=== PATIENT | male | born 1945 | race Caucasian/White ===

== ENCOUNTER 2017-01-14 11:05 | Inpatient (IN) | payer MEDICARE, OTHER ==
[~2017-01-14] VITALS: Ht 182.9 cm; Wt 99.1 kg
[~2017-01-14 11:05] MED LIST: ACET325T9 PO; ASPI81TA50 PO; ATOR40TA59 PO; ATORVASTATIN CA80 MG PO; BUSP10TA PO; BUSP5TAB PO; CHOL10003 PO; CLOP75TA PO; ESCI10TA PO; IPRA3AMP NEB; LEVO50TA5 PO; LEVO88TA4 PO; LISI40TA PO; LORA0.5T96 PO; LORA1TAB PO; LORA2VIA4 IM; MAG30ORA2 PO; MAGN2400 PO; MAGN400T3 PO; METH29OI TP; OLAN5TAB5 PO; QUET25TA5 PO; QUET50TA PO; QUET50TA5 PO; RIVA1PAT TD; RIVA1PAT3 TP; VALP250C PO
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
[2017-01-14 11:46] LABS: BASO % 1 % (0-3); EOS # 0.1 x10^3/uL (0.0-0.7); EOS % 1 % (0-3); HEMATOCRIT 41.2 % (39.0-53.0); HEMOGLOBIN 13.9 g/dL (13.0-17.5); LYMPH # 1.1 x10^3/uL (1.0-4.8); LYMPH % 23 % (24-48); MEAN CORPUSCULAR HEMOGLOBIN 35 pg (25-35); MEAN CORPUSCULAR HGB CONC 34 g/dL (31-37); MEAN CORPUSCULAR VOLUME 102 fL (79-100); MONO # 0.6 x10^3/uL (0.0-1.1); MONO % 13 % (0-9); NEUT # 2.8 x10^3uL (1.8-7.7); NEUT % 61 % (31-73); PLATELET COUNT 156 x10^3/uL (140-400); RED BLOOD COUNT 4.04 x10^6/uL (4.30-5.70); RED CELL DISTRIBUTION WIDTH 13.3 % (11.5-14.5); WHITE BLOOD COUNT 4.6 x10^3/uL (4.0-11.0)
--- NOTE | 2017-01-14 11:51 | EKG ---
[address] [address] Test Date: 2017-01-14 Test Time: 11:50:18 Pat Name: KOSTA LOUIS Department: Room: Gender: M Web [employer] Operator: ASHLEIGH : 1945 Requested By: JEREMIAS CIFUENTES Order Number: [id number] Reading MD: Cristo Kemp Measurements Intervals [place] Rate: 53 P: 49 NC: 166 QRS: 42 QRSD: 90 T: 82 QT: 416 QTc: 392 Interpretive Statements SINUS RHYTHM Electronically Signed On 01-29-2017 14:30:48 CDT by Cristo Kemp
[2017-01-14 11:57] LABS: HEMOGLOBIN ISTAT 13.3 gm/dL; POTASSIUM ISTAT 4.7 mmol/L (3.5-5.0)
[2017-01-14] MEDS ORDERED: LORAZEPAM 1 MG TABLET. PO ONE (12:00)
--- NOTE | 2017-01-14 13:31 | ACF ---
Admission Criteria Forms [facility] Clinical Indications for Admission to Inpatient Care (Place 'X' for any and all applicable criteria): Hospital admission is needed for appropriate care of the patient because of ANY ONE of the following[A] (3)(4)(5): [ ]I. Inpatient behavioral care is needed as indicated by ALL of the following: [ ]a) Treatment is needed because of patient risk due to ANY ONE of the following: [ ]i) Imminent danger to self due to ANY ONE of the following ( 7)(8): [ ]1) Imminent risk for recurrence of a suicide attempt or act of serious self-harm as indicated by ALL of the following: [ ]A. Very recent suicide attempt or deliberate act of serious self-harm [ ]B. Absence of sufficient relief of the action' s precipitants [ ]2) Current plan for suicide or serious self-harm [ ]3) Persistent thoughts of suicide or serious self- harm that cannot be adequately monitored at a lower level of care because of ANY ONE of the following: [ ]A. Insufficient behavioral care provider availability [ ]B. Inadequate patient support system [ ]C. Patient characteristics such as high impulsivity or unreliability [ ]D. Ruminative flooding; uncontrollable and overwhelming profusion of negative thoughts [ ]E. Frantic hopelessness; fatalistic conviction that life will not improve along with oppressive sense of entrapment and doom [ ]F. Active substance use disorder is present [ ]G. Ready access to lethal means is present [ ]ii) Imminent danger to others due to ANY ONE of the following( 10)(11): [ ]1) Imminent risk for recurrence of an attempt to seriously harm another as indicated by ALL of the following: [ ]A. Very recent attempt to seriously harm another [ ]B. Absence of sufficient relief of the action' s precipitants [ ]2) Current plan for homicide or seriously harming another [ ]3) Command auditory hallucination for serious self harm to self or others [ ]4) Persistent thoughts of homicide or seriously harming another that cannot be adequately monitored at a lower level of care because of ANY ONE of the following: [ ]A. Insufficient behavioral care provider availability [ ]B. Inadequate patient support system [ ]C. Patient characteristics such as high impulsivity or unreliability [ ]D. Active substance use disorder is present [ ]E. Ready access to lethal means is present [ ]iii) Behavioral health disorder is present with ALL of the following: (12)(16)(17)(18): [ ]1) Severe psychiatric or behavioral symptoms are present , including ANY ONE of the following: [ ]A. Hallucinations that are very bothersome to patient or are associated with severe pressure to respond to voices(17)(18) [ ]B. Delusions that are very bothersome to patient or are associated with severe pressure to act on beliefs(17)(18) [ ]C. Disorganized speech that is almost impossible to follow(17)(18) [ ]D. Motor behavior that is almost constantly abnormal or bizarre or catatonic(17)(18) [ ]E. Severe negative symptoms (eg, severe decrease in facial expression or self-initiated behavior)(17)(18) [ ]F. Severe shoaib (eg, daily periods of extensive mood elevation or irritability)(19)(20)(21)(22) [ ]G. Severe depression (eg, daily symptoms of deep hopelessness)[C] [ ]H. Severe anxiety[D] [ ]I. Severe comorbid substance use disorder with inability to control use, intense withdrawal symptoms, or extreme negative impact on primary psychiatric disorder(2)(7)(25) [ ]J. Severe impairment in cognition, memory, judgment, or impulse control(26)(27) [ ]K. Severe impairment in behavior, including physical or verbal aggression, disruptive behaviors, or internal or external anger manifestations (eg, rumination or outbursts)(28) [ ]L. Other psychiatric symptoms which are acute or represent worsening over baseline (eg, hyperactivity, agitation, obsessions, or compulsions)(29)(30)(31) [ ]2) Severe dysfunction in daily living is present as indicated by ANY ONE of the following: [ ]A. Extreme deterioration in social interactions ( eg, threatening behaviors with little or no provocation) [ ]B. Complete withdrawal from all social interactions [ ]C. Complete neglect of self-care with associated impairment in physical status [ ]D. Extreme disruption in vegetative function (eg , life-sustaining functions such as eating) [ ]E. Complete inability to maintain any appropriate aspect of personal responsibility in any adult roles (eg, occupational, parental) [ ]b) Treatment situation and needs are appropriate for level as indicated by ANY ONE of the following(13)(16): [ ]i) Patient unwilling to participate voluntarily and requires treatment (eg, legal commitment) in an involuntary unit [ ]ii) Voluntary treatment at lower level not feasible (e.g., very short-term crisis intervention or residential care unavailable or unacceptable for patient condition) [ ]iii) Need for physical restraint, seclusion, or other involuntary control (e.g., actively violent patient and adequate clinical rapport cannot be established to control violence) (25) [ ]iv) Jvvbnj-chi-xizfr medical or nursing care to address symptoms and initiate intervention is required; specific need has been identified [ ]II. Delirium as described by ANY ONE of the following (26)(27)(28): [ ]a) Delirium due to alcohol or sedative [B] withdrawal (16)(29)(30)( 31) [ ]b) Delirium of uncertain etiology that has not responded to appropriate treatment in emergency department or urgent care setting (32)(33) [ ]c) Delirium that prevents performance of a life-sustaining function (eg, feeding or hydrating oneself) (9) [ ]III. Administration of a somatic treatment that requires aqqmdw-bcb-jzvxr medical or nursing care because of a potential adverse physical effect or medical comorbidity(7) [X]IV. Behavioral Health condition, symptom, or finding for which emergency and observation care have failed or are not considered appropriate The original [facility] [employer] content created by [facility] has been revised. The portions of the content which have been revised are identified through the use of italic text or in bold, and [facility] has neither reviewed nor approved the modified material. All other unmodified content is copyright [facility]. Please see references footnoted in the original [facility] edition 2016 Admission Criteria Met?: Yes PROMISE SAMAYOA Jan 14, 2017 13:31
[2017-01-14 13:38] VITALS: BP 116/69
[2017-01-14] MEDS ORDERED: ACETAMINOPHEN 325 MG TABLET PO PRN (14:45)
[2017-01-14] MEDS ORDERED: LORAZEPAM 0.5 MG TABLET PO PRN (14:45)
[2017-01-14] MEDS ORDERED: IPRATRPIUM/ALBUTEROL 0.5/2.5MG 3 ML NEBU. NEB PRN (14:45)
[2017-01-14] MEDS ORDERED: METHYL SALICYLATE/MENTHOL TOPICAL OINTMENT 29GM TUBE. TP PRN (14:45)
[2017-01-14] MEDS ORDERED: DIVA125C PO (14:47)
[2017-01-14] MEDS ORDERED: MAGNESIUM HYDROXIDE 2,400 MG/30 ML ORAL.SUSP. PO PRN (15:00)
[2017-01-14 16:16] VITALS: BP 112/62
[2017-01-14] MEDS: CHOLECALCIFEROL (VITAMIN D3) 1,000 UNIT TABLET PO SCH (17:00)
[2017-01-14] MEDS: busPIRone 10 MG TABLET. PO SCH (17:00)
[2017-01-14 19:15] VITALS: BP 90/60
[2017-01-14] MEDS: DIVALPROEX 125 MG CAP.SPRINK PO SCH (20:18)
[2017-01-14] MEDS: MAGNESIUM OXIDE 400 MG TABLET PO SCH (20:18)
[2017-01-14] MEDS: LORAZEPAM 0.5 MG TABLET PO SCH (20:18)
[2017-01-14] MEDS: ATORVASTATIN CALCIUM 20 MG TABLET PO SCH (20:18)
--- NOTE | 2017-01-14 20:52 | PDOC ---
Exam [place] Demential Exam: [place] Note: Please also refer to the separate dictated note~for this date of service dictated separately.~Patient seen individually. Discussed the patient with Nursing staff reviewed the chart.~Reviewed interim history and current functioning. Reviewed vital signs,~Labs/ Radiology~and current medications noted below. Continue current treatment with the changes noted in the dictated addendum note Assessment: Vital Signs: Vital Signs Date Time Temp Pulse Resp B/P Pulse Ox O2 Delivery O2 Flow Rate FiO2 01/14/17 19:15 57 18 90/60 Room Air 01/14/17 16:16 97.9 92 Labs: Laboratory Tests Test 01/14/17 11:33 01/14/17 11:39 01/14/17 11:40 White Blood Count 4.6x10^3/uL (4.0-11.0) Red Blood Count 4.04x10^6/uL (4.30-5.70) L Hemoglobin 13.9g/dL (13.0-17.5) Hematocrit 41.2% (39.0-53.0) Mean Corpuscular Volume 102fL (79-100) H Mean Corpuscular Hemoglobin 35pg (25-35) Mean Corpuscular Hemoglobin Concent 34g/dL (31-37) Red Cell Distribution Width 13.3% (11.5-14.5) Platelet Count 156x10^3/uL (140-400) Neutrophils (%) (Auto) 61% (31-73) Lymphocytes (%) (Auto) 23% (24-48) L Monocytes (%) (Auto) 13% (0-9) H Eosinophils (%) (Auto) 1% (0-3) Basophils (%) (Auto) 1% (0-3) Neutrophils # (Auto) 2.8x10^3uL (1.8-7.7) Lymphocytes # (Auto) 1.1x10^3/uL (1.0-4.8) Monocytes # (Auto) 0.6x10^3/uL (0.0-1.1) Eosinophils # (Auto) 0.1x10^3/uL (0.0-0.7) Basophils # (Auto) 0.0x10^3/uL (0.0-0.2) Magnesium Level 2.0mg/dL (1.8-2.4) Aspartate Amino Transferase (AST) 22U/L (15-37) Alanine Aminotransferase (ALT) 34U/L (16-63) Alkaline Phosphatase 63U/L (46-116) POC Hemoglobin 13.3gm/dL POC Hematocrit 39% POC Sodium 140mmol/L (135-145) POC Potassium 4.7mmol/L (3.5-5.0) POC Chloride 103mmol/L (98-110) POC Total CO2 24mmol/L (23-32) Anion Gap 19mmol/L (6-14) H POC Blood Urea Nitrogen 18mg/dL (8-26) POC Creatinine 0.9mg/dL (0.5-1.4) Glucose Level 112mg/dL (60-99) H POC Ionized Calcium (Laura) 1.10mmol/L (1.13-1.32) L POC Troponin I 0.00ng/ml (<0.08) Current Medications: Meds: Current Medications Lorazepam (Ativan) 1 mg 1X ONCE PO Last administered on 01/14/17 12:00; Start 01/14/17 at 12:00; Stop 01/14/17 at 12:01; Status DC Acetaminophen (Tylenol) 650 mg PRN Q6HRS PRN PO PAIN / TEMP; Start 01/14/17 at 14:45 Aspirin (Aspirin Enteric Coated) 81 mg DAILYWBKFT PO ; Start 01/15/17 at 08:00 Buspirone HCl (Buspar) 10 mg BID94 PO Last administered on 01/14/17 17:00; Start 01/14/17 at 16:00 Clopidogrel Bisulfate (Plavix) 75 mg DAILY PO ; Start 01/15/17 at 09:00 Escitalopram Oxalate (Lexapro) 10 mg DAILY PO ; Start 01/15/17 at 09:00 Albuterol/ Ipratropium (Duoneb) 3 ml PRN QID PRN NEB SHORTNESS OF AIR; Start at 14:45 Levothyroxine Sodium (Synthroid) 88 mcg DAILY06 PO ; Start 01/15/17 at 06:00 Lorazepam (Ativan) 0.5 mg HS PO ; Start 01/14/17 at 21:00 Magnesium Oxide (Magnesium Oxide) 400 mg BID PO Last administered on 01/14/17 20:18; Start 01/14/17 at 21:00 Multi-Ingredient Ointment (Analgesic Johnson) 1 moraima PRN BID PRN TP MUSCLE PAIN; Start 01/14/17 at 14:45 Quetiapine Fumarate (SEROquel) 50 mg QHS PO ; Start 01/14/17 at 21:00 Rivastigmine (Exelon) 1 patch DAILY TD ; Start 01/15/17 at 09:00 Atorvastatin Calcium (Lipitor) 40 mg QHS PO Last administered on 01/14/17 20:18 ; Start 01/14/17 at 21:00 Magnesium Hydroxide (Milk Of Magnesia) 2,400 mg PRN QHS PRN PO CONSTIPATION; Start 01/14/17 at 15:00 Vitamin D (Vitamin D3) 1,000 unit BIDPCLD PO Last administered on 01/14/17 17: 00; Start 01/14/17 at 17:30 Lorazepam (Ativan) 0.5 mg PRN Q8HRS PRN PO ANXIETY / AGITATION; Start 01/14/17 at 14:45 Divalproex Sodium (Depakote Sprinkles) 500 mg BID PO Last administered on 20:18; Start 01/14/17 at 21:00 Olanzapine (Zyprexa Zydis) 5 mg PRN Q2HR PRN PO ANXIETY / AGITATION; Start 01/14 at 15:00 Active Scripts Active Reported Depakote Sprinkle (Divalproex Sodium) 125 Mg Cap.sprink 500 Mg PO BID EXELON 9.5mg/24hr (Rivastigmine) 1 Each Patch.td24 1 Patch TP DAILY Magnesium Oxide 400 Mg Tablet 400 Mg PO BID Ativan (Lorazepam) 0.5 Mg Tablet 0.5 Mg PO HS Duoneb 0.5-3(2.5) Mg/3 Ml (Albuterol/Ipratropium) 3 Ml Ampul.neb 3 Ml NEB PRN QID PRN Aspir-Low (Aspirin) 81 Mg Tablet.dr 1 Tab PO DAILYWBKFT Vitamin D3 (Cholecalciferol (Vitamin D3)) 1,000 Unit Tablet 1,000 Unit PO BIDPCLD Seroquel (Quetiapine Fumarate) 50 Mg Tablet 50 Mg PO QHS Levothyroxine Sodium 88 Mcg Tablet 88 Mcg PO DAILY06 Atorvastatin Calcium 40 Mg Tablet 40 Mg PO QHS Buspirone Hcl 5 Mg Tablet 10 Mg PO BID94 Do NOT administer with grapefruit juice Analgesic Johnson (Methyl Salicylate/Menthol) 29 Gm Oint...g. 1 Moraima TP PRN BID PRN Milk Of Magnesia (Magnesium Hydroxide) 2,400 Mg/10 Ml Oral.susp 2,400 Mg PO PRN QHS PRN Tylenol (Acetaminophen) 325 Mg Tablet 650 Mg PO PRN Q6HRS PRN Maximum Acetaminophen dose is 4000 mg in 24 hours from all sources for adults. Ativan (Lorazepam) 0.5 Mg Tablet 0.5 Mg PO PRN Q8HRS PRN Escitalopram Oxalate 10 Mg Tablet 10 Mg PO DAILY Clopidogrel (Clopidogrel Bisulfate) 75 Mg Tablet 75 Mg PO DAILY Diagnosis: Problems: (1) Medical clearance for psychiatric admission (2) Anxiety disorder (3) Dementia in Alzheimer's disease with depression (4) Dementia in Alzheimer's disease with delusions (5) Impulse control disorder (6) Dementia, vascular, with depression (7) Dementia, vascular, with delusions (8) Dementia, vascular (9) Dementia with behavioral disturbance ASHA NAJERA MD Jan 14, 2017 20:51
[2017-01-14] MEDS ORDERED: QUEtiapine 50 MG TABLET. PO SCH (21:00)
[2017-01-14 21:38] LABS: VAL ACID 56 mcg/mL (50-100)
[2017-01-15] MEDS: LEVOTHYROXINE 88 MCG TABLET PO SCH (05:30)
[2017-01-15 05:53] VITALS: BP 108/72
[2017-01-15] MEDS: MAGNESIUM OXIDE 400 MG TABLET PO SCH ×2 (08:17→19:33)
[2017-01-15] MEDS: CHOLECALCIFEROL (VITAMIN D3) 1,000 UNIT TABLET PO SCH ×2 (08:17→17:07)
[2017-01-15] MEDS: busPIRone 10 MG TABLET. PO SCH ×2 (08:17→17:07)
[2017-01-15] MEDS: DIVALPROEX 125 MG CAP.SPRINK PO SCH ×2 (08:18→19:36)
[2017-01-15] MEDS: ASPIRIN ENTERIC COATED 81 MG TABLET.DR. PO SCH (08:19)
[2017-01-15] MEDS: CLOPIDOGREL BISULFATE 75 MG TABLET PO SCH (08:19)
[2017-01-15] MEDS: ESCITALOPRAM 10 MG TABLET. PO SCH (08:20)
[2017-01-15] MEDS: RIVASTIGMINE 9.5MG PATCH. TD SCH (08:20)
[2017-01-15 15:45] VITALS: BP 107/75
[2017-01-15 15:52] LABS: BILIRUBIN,URINE NEG (NEG); CLARITY,URINE HAZY; COLOR,URINE YELLOW; GLUCOSE,URINE NEG (NEG); NITRITE,URINE NEG (NEG); UROBILINOGEN,URINE 0.2 mg/dL (0.2 mg/dL)
[2017-01-15 15:59] LABS: BACTERIA,URINE 0 /HPF (0-FEW); SQUAMOUS EPITHELIAL CELL,UR OCC /LPF
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
[2017-01-15] MEDS: LORAZEPAM 0.5 MG TABLET PO SCH (19:33)
[2017-01-15] MEDS: ATORVASTATIN CALCIUM 20 MG TABLET PO SCH (19:36)
[2017-01-15] MEDS: QUEtiapine 25 MG TABLET. PO SCH (19:36)
--- NOTE | 2017-01-15 20:50 | PDOC ---
Exam [place] Demential Exam: [place] Note: Please also refer to the separate dictated note~for this date of service dictated separately.~Patient seen individually. Discussed the patient with Nursing staff reviewed the chart.~Reviewed interim history and current functioning. Reviewed vital signs,~Labs/ Radiology~and current medications noted below. Continue current treatment with the changes noted in the dictated addendum note Assessment: Vital Signs: Vital Signs Date Time Temp Pulse Resp B/P Pulse Ox O2 Delivery O2 Flow Rate FiO2 01/15/17 15:45 98.3 53 18 107/75 94 Room Air I&O Intake and Output 01/15/17 07:00 Intake Total 600 ml Balance 600 ml Intake Oral 600 ml # Voids 4 # Bowel Movements 1 Labs: Laboratory Tests Test 01/15/17 14:36 Urine Collection Type Unknown Urine Color Yellow Urine Clarity Hazy Urine pH 6.0 Urine Specific [place] 1.020 Urine Protein Neg (NEG-TRACE) Urine Glucose (UA) Negmg/dL (NEG) Urine Ketones (Stick) Negmg/dL (NEG) Urine Blood Neg (NEG) Urine Nitrite Neg (NEG) Urine Bilirubin Neg (NEG) Urine Urobilinogen Dipstick 0.2mg/dL (0.2 mg/dL) Urine Leukocyte Esterase Trace (NEG) Urine RBC 1-2/HPF (0-2) Urine WBC 5-10/HPF (0-4) Urine Squamous Epithelial Cells Occ/LPF Urine Bacteria 0/HPF (0-FEW) Current Medications: Meds: Current Medications Lorazepam (Ativan) 1 mg 1X ONCE PO Last administered on 01/14/17 12:00; Start 01/14/17 at 12:00; Stop 01/14/17 at 12:01; Status DC Acetaminophen (Tylenol) 650 mg PRN Q6HRS PRN PO PAIN / TEMP; Start 01/14/17 at 14:45 Aspirin (Aspirin Enteric Coated) 81 mg DAILYWBKFT PO Last administered on 08:19; Start 01/15/17 at 08:00 Buspirone HCl (Buspar) 10 mg BID94 PO Last administered on 01/15/17 17:07; Start 01/14/17 at 16:00 Clopidogrel Bisulfate (Plavix) 75 mg DAILY PO Last administered on 01/15/17 08 :19; Start 01/15/17 at 09:00 Escitalopram Oxalate (Lexapro) 10 mg DAILY PO Last administered on 01/15/17 08 :20; Start 01/15/17 at 09:00 Albuterol/ Ipratropium (Duoneb) 3 ml PRN QID PRN NEB SHORTNESS OF AIR; Start at 14:45 Levothyroxine Sodium (Synthroid) 88 mcg DAILY06 PO Last administered on 05:30; Start 01/15/17 at 06:00 Lorazepam (Ativan) 0.5 mg HS PO Last administered on 01/15/17 19:33; Start 01/14/17 at 21:00 Magnesium Oxide (Magnesium Oxide) 400 mg BID PO Last administered on 01/15/17 19:33; Start 01/14/17 at 21:00 Multi-Ingredient Ointment (Analgesic [place]) 1 moraima PRN BID PRN TP MUSCLE PAIN; Start 01/14/17 at 14:45 Quetiapine Fumarate (SEROquel) 50 mg QHS PO ; Start 01/14/17 at 21:00; Stop 01/15 at 18:05; Status DC Rivastigmine (Exelon) 1 patch DAILY TD Last administered on 01/15/17 08:20; Start 01/15/17 at 09:00 Atorvastatin Calcium (Lipitor) 40 mg QHS PO Last administered on 01/15/17 19: 36; Start 01/14/17 at 21:00 Magnesium Hydroxide (Milk Of Magnesia) 2,400 mg PRN QHS PRN PO CONSTIPATION; Start 01/14/17 at 15:00 Vitamin D (Vitamin D3) 1,000 unit BIDPCLD PO Last administered on 01/15/17 17: 07; Start 01/14/17 at 17:30 Lorazepam (Ativan) 0.5 mg PRN Q8HRS PRN PO ANXIETY / AGITATION; Start 01/14/17 at 14:45 Divalproex Sodium (Depakote Sprinkles) 500 mg BID PO Last administered on 19:36; Start 01/14/17 at 21:00 Olanzapine (Zyprexa Zydis) 5 mg PRN Q2HR PRN PO ANXIETY / AGITATION; Start 01/14 at 15:00 Quetiapine Fumarate (SEROquel) 12.5 mg TID PO Last administered on 01/15/17t 19 :36; Start 01/15/17 at 21:00 Active Scripts Active Reported Depakote Sprinkle (Divalproex Sodium) 125 Mg Cap.sprink 500 Mg PO BID EXELON 9.5mg/24hr (Rivastigmine) 1 Each Patch.td24 1 Patch TP DAILY Magnesium Oxide 400 Mg Tablet 400 Mg PO BID Ativan (Lorazepam) 0.5 Mg Tablet 0.5 Mg PO HS Duoneb 0.5-3(2.5) Mg/3 Ml (Albuterol/Ipratropium) 3 Ml Ampul.neb 3 Ml NEB PRN QID PRN Aspir-Low (Aspirin) 81 Mg Tablet.dr 1 Tab PO DAILYWBKFT Vitamin D3 (Cholecalciferol (Vitamin D3)) 1,000 Unit Tablet 1,000 Unit PO BIDPCLD Seroquel (Quetiapine Fumarate) 50 Mg Tablet 50 Mg PO QHS Levothyroxine Sodium 88 Mcg Tablet 88 Mcg PO DAILY06 Atorvastatin Calcium 40 Mg Tablet 40 Mg PO QHS Buspirone Hcl 5 Mg Tablet 10 Mg PO BID94 Do NOT administer with grapefruit juice Analgesic [place] (Methyl Salicylate/Menthol) 29 Gm Oint...g. 1 [place] TP PRN BID PRN Milk Of Magnesia (Magnesium Hydroxide) 2,400 Mg/10 Ml Oral.susp 2,400 Mg PO PRN QHS PRN Tylenol (Acetaminophen) 325 Mg Tablet 650 Mg PO PRN Q6HRS PRN Maximum Acetaminophen dose is 4000 mg in 24 hours from all sources for adults. Ativan (Lorazepam) 0.5 Mg Tablet 0.5 Mg PO PRN Q8HRS PRN Escitalopram Oxalate 10 Mg Tablet 10 Mg PO DAILY Clopidogrel (Clopidogrel Bisulfate) 75 Mg Tablet 75 Mg PO DAILY Diagnosis: Problems: (1) Dementia with behavioral disturbance (2) Anxiety disorder (3) Impulse control disorder (4) Dementia, vascular (5) Dementia, vascular, with depression (6) Dementia, vascular, with delusions (7) Dementia in Alzheimer's disease with depression (8) Dementia in Alzheimer's disease with delusions (9) Medical clearance for psychiatric admission ASHA NAJERA MD Jan 15, 2017 20:50
--- NOTE | 2017-01-15 22:51 | CONS ---
DATE OF CONSULTATION: 01/15/2017 REASON FOR CONSULTATION: Medical management. HISTORY OF PRESENT ILLNESS: The patient is a 71-year-old male patient who was discharged from this unit only 3 days ago to [facility] and apparently was brought back to the Emergency Room as he was threatening the staff and other residents and was sent back for inpatient psychiatric stabilization. PAST MEDICAL HISTORY: Significant for Alzheimer dementia, COPD, bradycardia, hypothyroidism, hyperlipidemia, major depressive disorder, anxiety, impulse control disorder, hypertension and peripheral vascular disease. PAST SURGICAL HISTORY: Significant for coronary artery disease status post PTCA and stent deployment. ALLERGIES: HE IS ALLERGIC TO HUMAN ALBUMIN. MEDICATIONS: He is currently on following medications: Tylenol 650 mg every 6 hours, aspirin 81 mg once a day, atorvastatin calcium 40 mg at bedtime, buspirone 10 mg b.i.d., cholecalciferol 1000 international unit p.o. b.i.d., Plavix 75 mg once a day, Depakote Sprinkles 500 mg twice a day, escitalopram oxalate 10 mg once a day, ipratropium bromide, albuterol sulfate by nebulizer 4 times a day, levothyroxine sodium 88 mcg once a day, lorazepam 0.5 mg every 8 hours and lorazepam 0.5 mg at bedtime, milk of magnesia 30 mL p.o. daily p.r.n. for constipation, magnesium oxide 400 mg p.o. b.i.d., quetiapine fumarate 50 mg at bedtime and Exelon 9.5 mg patch topically once a day. FAMILY HISTORY: Unremarkable. SOCIAL HISTORY: He is a resident at [facility]. He apparently does not smoke, drink alcohol or use any recreational drugs. REVIEW OF SYSTEMS: As per history of present illness. PHYSICAL EXAMINATION GENERAL: When I examined him, he was sitting comfortably, eating his lunch, in no apparent distress. He was slightly pale, but no jaundice, cyanosis, or thyromegaly. No jugular venous distension. No limb edema. VITAL SIGNS: His heart rate was 57, blood pressure was 108/72, temperature was 97.8, respiratory rate was 18 and oxygen saturation was 96%. HEAD, EYES, EARS, NOSE AND THROAT: Showed normocephalic, atraumatic. NECK: Supple. HEART: Showed normal first and second heart sounds with no gallop, rub or murmur. CHEST: Clear to auscultation. No crepitation or rhonchi. ABDOMEN: Distended, soft, nontender. No guarding or rigidity. No organomegaly. Hernial orifices intact. Bowel sounds normal. NEUROLOGIC: He is demented, but without any obvious lateralizing signs. The patient ambulates without assistance or assistive devices. LABORATORY DATA: Showed white cell count of 4600, hemoglobin 13.9, hematocrit 41, MCV 102, and platelet count of 156,000. The manual differential showed 61% polymorphs, 23% lymphocytes and 13% monocytes. Chemistry showed serum sodium 140, potassium 4.7, chloride 103, bicarbonate 24, anion gap of 19, BUN 18, creatinine 0.9, estimated GFR was 112 mL per minute, his glucose was at 112 mg/dL, magnesium 2. AST, ALT, alkaline phosphatase were normal. His toxic screen showed valproic acid to be 56 mcg/mL, which is well within therapeutic range. IMPRESSION: In summary, this is a 71-year-old male patient who was just released from this unit to [facility], was admitted as he was threatening the staff and other residents, all this in the background of dementia and Alzheimer disease with depression, delusion and impulse control disorder. His vital signs are all stable. His lab works are all within acceptable range and all in all, he seemed to be medically stable. I will follow all the lab work that are still pending at the time of this dictation and make appropriate recommendations. Thank you, Dr. Chery for allowing me to participate in the care of this patient. LATRELL ARIAS MD DR: NANCY/abel JOB#: [id number] / [id number]
[2017-01-16] MEDS: LEVOTHYROXINE 88 MCG TABLET PO SCH (05:49)
[2017-01-16 06:07] VITALS: BP 147/56
[2017-01-16] MEDS: CLOPIDOGREL BISULFATE 75 MG TABLET PO SCH (08:21)
[2017-01-16] MEDS: ASPIRIN ENTERIC COATED 81 MG TABLET.DR. PO SCH (08:21)
[2017-01-16] MEDS: RIVASTIGMINE 9.5MG PATCH. TD SCH (08:21)
[2017-01-16] MEDS: QUEtiapine 25 MG TABLET. PO SCH ×3 (08:22→21:59)
[2017-01-16] MEDS: DIVALPROEX 125 MG CAP.SPRINK PO SCH ×2 (08:22→21:59)
[2017-01-16] MEDS: ESCITALOPRAM 10 MG TABLET. PO SCH (08:22)
[2017-01-16] MEDS: CHOLECALCIFEROL (VITAMIN D3) 1,000 UNIT TABLET PO SCH ×2 (08:22→16:19)
[2017-01-16] MEDS: MAGNESIUM OXIDE 400 MG TABLET PO SCH ×2 (08:22→21:59)
[2017-01-16] MEDS: busPIRone 10 MG TABLET. PO SCH ×4 (08:22→21:59)
[2017-01-16 15:39] VITALS: BP 114/74
[2017-01-16] MEDS: OLANZAPINE ZYDIS 5 MG TAB.RAPDIS PO PRN ×2 (15:56→21:50)
--- NOTE | 2017-01-16 20:53 | PDOC ---
Exam [place] Demential Exam: [place] Note: Please also refer to the separate dictated note~for this date of service dictated separately.~Patient seen individually. Discussed the patient with Nursing staff reviewed the chart.~Reviewed interim history and current functioning. Reviewed vital signs,~Labs/ Radiology~and current medications noted below. Continue current treatment with the changes noted in the dictated addendum note Assessment: Vital Signs: Vital Signs Date Time Temp Pulse Resp B/P Pulse Ox O2 Delivery O2 Flow Rate FiO2 01/16/17 15:39 98.2 64 18 114/74 96 01/16/17 06:07 Room Air I&O Intake and Output 01/16/17 07:00 Intake Total 1080 ml Balance 1080 ml Intake Oral 1080 ml Current Medications: Meds: Current Medications Lorazepam (Ativan) 1 mg 1X ONCE PO Last administered on 01/14/17 12:00; Start 01/14/17 at 12:00; Stop 01/14/17 at 12:01; Status DC Acetaminophen (Tylenol) 650 mg PRN Q6HRS PRN PO PAIN / TEMP; Start 01/14/17 at 14:45 Aspirin (Aspirin Enteric Coated) 81 mg DAILYWBKFT PO Last administered on 08:21; Start 01/15/17 at 08:00 Buspirone HCl (Buspar) 10 mg BID94 PO Last administered on 01/16/17 15:56; Start 01/14/17 at 16:00; Stop 01/16/17 at 17:14; Status DC Clopidogrel Bisulfate (Plavix) 75 mg DAILY PO Last administered on 01/16/17 08 :21; Start 01/15/17 at 09:00 Escitalopram Oxalate (Lexapro) 10 mg DAILY PO Last administered on 01/16/17 08 :22; Start 01/15/17 at 09:00 Albuterol/ Ipratropium (Duoneb) 3 ml PRN QID PRN NEB SHORTNESS OF AIR; Start at 14:45 Levothyroxine Sodium (Synthroid) 88 mcg DAILY06 PO Last administered on 05:49; Start 01/15/17 at 06:00 Lorazepam (Ativan) 0.5 mg HS PO Last administered on 01/15/17 19:33; Start 01/14/17 at 21:00 Magnesium Oxide (Magnesium Oxide) 400 mg BID PO Last administered on 01/16/17 08:22; Start 01/14/17 at 21:00 Multi-Ingredient Ointment (Analgesic [place]) 1 moraima PRN BID PRN TP MUSCLE PAIN; Start 01/14/17 at 14:45 Quetiapine Fumarate (SEROquel) 50 mg QHS PO ; Start 01/14/17 at 21:00; Stop 01/15 at 18:05; Status DC Rivastigmine (Exelon) 1 patch DAILY TD Last administered on 01/16/17 08:21; Start 01/15/17 at 09:00 Atorvastatin Calcium (Lipitor) 40 mg QHS PO Last administered on 01/15/17 19: 36; Start 01/14/17 at 21:00 Magnesium Hydroxide (Milk Of Magnesia) 2,400 mg PRN QHS PRN PO CONSTIPATION; Start 01/14/17 at 15:00 Vitamin D (Vitamin D3) 1,000 unit BIDPCLD PO Last administered on 01/16/17 16: 19; Start 01/14/17 at 17:30 Lorazepam (Ativan) 0.5 mg PRN Q8HRS PRN PO ANXIETY / AGITATION; Start 01/14/17 at 14:45 Divalproex Sodium (Depakote Sprinkles) 500 mg BID PO Last administered on 08:22; Start 01/14/17 at 21:00 Olanzapine (Zyprexa Zydis) 5 mg PRN Q2HR PRN PO ANXIETY / AGITATION Last administered on 01/16/17 15:56; Start 01/14/17 at 15:00 Quetiapine Fumarate (SEROquel) 12.5 mg TID PO Last administered on 01/16/17 14 :04; Start 01/15/17 at 21:00 Buspirone HCl (Buspar) 10 mg QID PO ; Start 01/16/17 at 17:00 Active Scripts Active Reported Depakote Sprinkle (Divalproex Sodium) 125 Mg Cap.sprink 500 Mg PO BID EXELON 9.5mg/24hr (Rivastigmine) 1 Each Patch.td24 1 Patch TP DAILY Magnesium Oxide 400 Mg Tablet 400 Mg PO BID Ativan (Lorazepam) 0.5 Mg Tablet 0.5 Mg PO HS Duoneb 0.5-3(2.5) Mg/3 Ml (Albuterol/Ipratropium) 3 Ml Ampul.neb 3 Ml NEB PRN QID PRN Aspir-Low (Aspirin) 81 Mg Tablet.dr 1 Tab PO DAILYWBKFT Vitamin D3 (Cholecalciferol (Vitamin D3)) 1,000 Unit Tablet 1,000 Unit PO BIDPCLD Seroquel (Quetiapine Fumarate) 50 Mg Tablet 50 Mg PO QHS Levothyroxine Sodium 88 Mcg Tablet 88 Mcg PO DAILY06 Atorvastatin Calcium 40 Mg Tablet 40 Mg PO QHS Buspirone Hcl 5 Mg Tablet 10 Mg PO BID94 Do NOT administer with grapefruit juice Analgesic [place] (Methyl Salicylate/Menthol) 29 Gm Oint...g. 1 [place] TP PRN BID PRN Milk Of Magnesia (Magnesium Hydroxide) 2,400 Mg/10 Ml Oral.susp 2,400 Mg PO PRN QHS PRN Tylenol (Acetaminophen) 325 Mg Tablet 650 Mg PO PRN Q6HRS PRN Maximum Acetaminophen dose is 4000 mg in 24 hours from all sources for adults. Ativan (Lorazepam) 0.5 Mg Tablet 0.5 Mg PO PRN Q8HRS PRN Escitalopram Oxalate 10 Mg Tablet 10 Mg PO DAILY Clopidogrel (Clopidogrel Bisulfate) 75 Mg Tablet 75 Mg PO DAILY Diagnosis: Problems: (1) Dementia with behavioral disturbance (2) Anxiety disorder (3) Impulse control disorder (4) Dementia, vascular (5) Dementia, vascular, with depression (6) Dementia, vascular, with delusions (7) Dementia in Alzheimer's disease with depression (8) Dementia in Alzheimer's disease with delusions (9) Medical clearance for psychiatric admission ASHA NAJERA MD Jan 16, 2017 20:53
[2017-01-16] MEDS: LORAZEPAM 0.5 MG TABLET PO SCH (21:59)
[2017-01-16] MEDS: ATORVASTATIN CALCIUM 20 MG TABLET PO SCH (21:59)
--- NOTE | 2017-01-16 22:40 | PN ---
DATE: 01/15/2017 PSYCHIATRIC PROGRESS NOTE This is late entry of 01/15/2017, covers elements not covered in my initial note. SUBJECTIVE: Per nursing report, the patient was quite euphoric the previous evening, laughing, smiling, somewhat grandiose at times. He threatened one of the staff members when he disliked something that was not evident to others and stated "I could knock your teeth out of your head." REVIEW OF SYSTEMS: No CV, , eye, ENT, pulmonary system symptoms on review. Reliability poor. MENTAL STATUS EXAMINATION: Oriented to himself. Insight, judgment, recent and remote memory, attention, concentration, fund of knowledge poor, consistent with his diagnosis mentioned in my initial note. IMPRESSION: Major neurocognitive disorder, Lewy body, Alzheimer, vascular with depression, delusion, behavioral disturbance; anxiety disorder, unspecified; impulse control disorder, unspecified. PLAN: The patient's blood pressure was somewhat low and Dr. Simon held the Ativan and Seroquel. Blood pressure is stabilized and we will restart Seroquel 12.5 mg 3 times a day if approved by Dr. Simon. Valproic acid level is 56, therapeutic. Continue Depakote 500 b.i.d., Exelon patch 9.5 mg a day, Lexapro 10 mg a day, BuSpar is 10 mg b.i.d. We will increase it to 10 mg 4 times a day. Adjust further as clinically indicated. MAN Shorty NAJERA MD DR: MILKA/abel JOB#: [id number] / [id number]
[2017-01-17] MEDS: LEVOTHYROXINE 88 MCG TABLET PO SCH (05:36)
[2017-01-17] MEDS: CLOPIDOGREL BISULFATE 75 MG TABLET PO SCH (12:06)
[2017-01-17] MEDS: DIVALPROEX 125 MG CAP.SPRINK PO SCH ×2 (12:06→19:11)
[2017-01-17] MEDS: MAGNESIUM OXIDE 400 MG TABLET PO SCH ×2 (12:06→19:11)
[2017-01-17] MEDS: ESCITALOPRAM 10 MG TABLET. PO SCH (12:06)
[2017-01-17] MEDS: ASPIRIN ENTERIC COATED 81 MG TABLET.DR. PO SCH (12:06)
[2017-01-17] MEDS: busPIRone 10 MG TABLET. PO SCH ×4 (12:08→19:11)
[2017-01-17] MEDS: RIVASTIGMINE 9.5MG PATCH. TD SCH (12:08)
[2017-01-17] MEDS: QUEtiapine 25 MG TABLET. PO SCH ×3 (12:08→19:11)
[2017-01-17] MEDS: CHOLECALCIFEROL (VITAMIN D3) 1,000 UNIT TABLET PO SCH ×2 (12:09→17:01)
[2017-01-17 15:34] VITALS: BP 89/61
[2017-01-17] MEDS: LORAZEPAM 0.5 MG TABLET PO SCH (19:10)
[2017-01-17] MEDS: ATORVASTATIN CALCIUM 20 MG TABLET PO SCH (19:11)
--- NOTE | 2017-01-17 20:55 | PDOC ---
Exam [place] Demential Exam: [place] Note: Please also refer to the separate dictated note~for this date of service dictated separately.~Patient seen individually. Discussed the patient with Nursing staff reviewed the chart.~Reviewed interim history and current functioning. Reviewed vital signs,~Labs/ Radiology~and current medications noted below. Continue current treatment with the changes noted in the dictated addendum note Assessment: Vital Signs: Vital Signs Date Time Temp Pulse Resp B/P Pulse Ox O2 Delivery O2 Flow Rate FiO2 01/17/17 15:34 51 89/61 99 01/16/17 15:39 98.2 18 01/16/17 06:07 Room Air I&O Intake and Output 01/17/17 07:00 Intake Total 1080 ml Balance 1080 ml Intake Oral 1080 ml # Voids 2 # Bowel Movements 2 Current Medications: Meds: Current Medications Lorazepam (Ativan) 1 mg 1X ONCE PO Last administered on 01/14/17 12:00; Start 01/14/17 at 12:00; Stop 01/14/17 at 12:01; Status DC Acetaminophen (Tylenol) 650 mg PRN Q6HRS PRN PO PAIN / TEMP; Start 01/14/17 at 14:45 Aspirin (Aspirin Enteric Coated) 81 mg DAILYWBKFT PO Last administered on 12:06; Start 01/15/17 at 08:00 Buspirone HCl (Buspar) 10 mg BID94 PO Last administered on 01/16/17 15:56; Start 01/14/17 at 16:00; Stop 01/16/17 at 17:14; Status DC Clopidogrel Bisulfate (Plavix) 75 mg DAILY PO Last administered on 01/17/17 12 :06; Start 01/15/17 at 09:00 Escitalopram Oxalate (Lexapro) 10 mg DAILY PO Last administered on 01/17/17 12 :06; Start 01/15/17 at 09:00 Albuterol/ Ipratropium (Duoneb) 3 ml PRN QID PRN NEB SHORTNESS OF AIR; Start at 14:45 Levothyroxine Sodium (Synthroid) 88 mcg DAILY06 PO Last administered on 05:36; Start 01/15/17 at 06:00 Lorazepam (Ativan) 0.5 mg HS PO Last administered on 01/17/17 19:10; Start 01/14/17 at 21:00 Magnesium Oxide (Magnesium Oxide) 400 mg BID PO Last administered on 01/17/17 19:11; Start 01/14/17 at 21:00 Multi-Ingredient Ointment (Analgesic [place]) 1 moraima PRN BID PRN TP MUSCLE PAIN; Start 01/14/17 at 14:45 Quetiapine Fumarate (SEROquel) 50 mg QHS PO ; Start 01/14/17 at 21:00; Stop 01/15 at 18:05; Status DC Rivastigmine (Exelon) 1 patch DAILY TD Last administered on 01/17/17 12:08; Start 01/15/17 at 09:00 Atorvastatin Calcium (Lipitor) 40 mg QHS PO Last administered on 01/17/17 19: 11; Start 01/14/17 at 21:00 Magnesium Hydroxide (Milk Of Magnesia) 2,400 mg PRN QHS PRN PO CONSTIPATION; Start 01/14/17 at 15:00 Vitamin D (Vitamin D3) 1,000 unit BIDPCLD PO Last administered on 01/17/17 17: 01; Start 01/14/17 at 17:30 Lorazepam (Ativan) 0.5 mg PRN Q8HRS PRN PO ANXIETY / AGITATION; Start 01/14/17 at 14:45 Divalproex Sodium (Depakote Sprinkles) 500 mg BID PO Last administered on 19:11; Start 01/14/17 at 21:00 Olanzapine (Zyprexa Zydis) 5 mg PRN Q2HR PRN PO ANXIETY / AGITATION Last administered on 01/16/17 21:50; Start 01/14/17 at 15:00 Quetiapine Fumarate (SEROquel) 12.5 mg TID PO Last administered on 01/17/17 19 :11; Start 01/15/17 at 21:00 Buspirone HCl (Buspar) 10 mg QID PO Last administered on 01/17/17 19:11; Start 01/16/17 at 17:00 Active Scripts Active Reported Depakote Sprinkle (Divalproex Sodium) 125 Mg Cap.sprink 500 Mg PO BID EXELON 9.5mg/24hr (Rivastigmine) 1 Each Patch.td24 1 Patch TP DAILY Magnesium Oxide 400 Mg Tablet 400 Mg PO BID Ativan (Lorazepam) 0.5 Mg Tablet 0.5 Mg PO HS Duoneb 0.5-3(2.5) Mg/3 Ml (Albuterol/Ipratropium) 3 Ml Ampul.neb 3 Ml NEB PRN QID PRN Aspir-Low (Aspirin) 81 Mg Tablet.dr 1 Tab PO DAILYWBKFT Vitamin D3 (Cholecalciferol (Vitamin D3)) 1,000 Unit Tablet 1,000 Unit PO BIDPCLD Seroquel (Quetiapine Fumarate) 50 Mg Tablet 50 Mg PO QHS Levothyroxine Sodium 88 Mcg Tablet 88 Mcg PO DAILY06 Atorvastatin Calcium 40 Mg Tablet 40 Mg PO QHS Buspirone Hcl 5 Mg Tablet 10 Mg PO BID94 Do NOT administer with grapefruit juice Analgesic [place] (Methyl Salicylate/Menthol) 29 Gm Oint...g. 1 [place] TP PRN BID PRN Milk Of Magnesia (Magnesium Hydroxide) 2,400 Mg/10 Ml Oral.susp 2,400 Mg PO PRN QHS PRN Tylenol (Acetaminophen) 325 Mg Tablet 650 Mg PO PRN Q6HRS PRN Maximum Acetaminophen dose is 4000 mg in 24 hours from all sources for adults. Ativan (Lorazepam) 0.5 Mg Tablet 0.5 Mg PO PRN Q8HRS PRN Escitalopram Oxalate 10 Mg Tablet 10 Mg PO DAILY Clopidogrel (Clopidogrel Bisulfate) 75 Mg Tablet 75 Mg PO DAILY Diagnosis: Problems: (1) Dementia with behavioral disturbance (2) Anxiety disorder (3) Impulse control disorder (4) Dementia, vascular (5) Dementia, vascular, with depression (6) Dementia, vascular, with delusions (7) Dementia in Alzheimer's disease with depression (8) Dementia in Alzheimer's disease with delusions (9) Medical clearance for psychiatric admission ASHA NAJERA MD Jan 17, 2017 20:55
--- NOTE | 2017-01-17 21:07 | PN ---
DATE: 01/16/2017 PSYCHIATRIC PROGRESS NOTE This is late entry of 01/16/2017, covers elements not covered in my initial note. SUBJECTIVE: Per nursing report, the patient has been agitated, received Zyprexa x 1, appeared psychotic, quite anxious, can be aggressive, but so far has not struck out at staff. REVIEW OF SYSTEMS: No CV, , pulmonary, eye, ENT system symptoms on review. Reliability poor. MENTAL STATUS EXAMINATION: Oriented to himself. Insight, judgment, recent and remote memory, attention, concentration, fund of knowledge poor, consistent with his diagnosis as mentioned in my initial note. IMPRESSION: Major neurocognitive disorder, Lewy body type, possibly vascular with depression, delusion, behavioral disturbance; anxiety disorder, unspecified; impulse control disorder, unspecified. Rest diagnoses unchanged. PLAN: Increase BuSpar from 10 mg twice a day to 10 mg 4 times a day, continue Lexapro 10 mg a day, Exelon patch 9.5 mg a day, Depakote 500 b.i.d. with the level therapeutic at 56, Seroquel 12.5 mg 3 times a day. Adjust further as clinically indicated. MAN Shorty NAJERA MD DR: MILKA/abel JOB#: [id number] / [id number]
[2017-01-18] MEDS: LEVOTHYROXINE 88 MCG TABLET PO SCH (05:32)
[2017-01-18] MEDS: OLANZAPINE ZYDIS 5 MG TAB.RAPDIS PO PRN (05:32)
[2017-01-18 05:35] VITALS: BP 130/69
[2017-01-18] MEDS: DIVALPROEX 125 MG CAP.SPRINK PO SCH ×2 (08:19→19:19)
[2017-01-18] MEDS: RIVASTIGMINE 9.5MG PATCH. TD SCH (08:19)
[2017-01-18] MEDS: ASPIRIN ENTERIC COATED 81 MG TABLET.DR. PO SCH (08:20)
[2017-01-18] MEDS: CLOPIDOGREL BISULFATE 75 MG TABLET PO SCH (08:20)
[2017-01-18] MEDS: QUEtiapine 25 MG TABLET. PO SCH ×3 (08:20→19:20)
[2017-01-18] MEDS: busPIRone 10 MG TABLET. PO SCH ×4 (08:20→19:19)
[2017-01-18] MEDS: MAGNESIUM OXIDE 400 MG TABLET PO SCH ×2 (08:20→19:20)
[2017-01-18] MEDS: ESCITALOPRAM 10 MG TABLET. PO SCH (08:20)
[2017-01-18] MEDS: CHOLECALCIFEROL (VITAMIN D3) 1,000 UNIT TABLET PO SCH ×2 (08:21→16:47)
[2017-01-18 15:34] VITALS: BP 146/76
[2017-01-18] MEDS: LORAZEPAM 0.5 MG TABLET PO SCH (19:19)
[2017-01-18] MEDS: ATORVASTATIN CALCIUM 20 MG TABLET PO SCH (19:20)
--- NOTE | 2017-01-18 21:00 | PDOC ---
Exam [place] Demential Exam: [place] Note: Please also refer to the separate dictated note~for this date of service dictated separately.~Patient seen individually. Discussed the patient with Nursing staff reviewed the chart.~Reviewed interim history and current functioning. Reviewed vital signs,~Labs/ Radiology~and current medications noted below. Continue current treatment with the changes noted in the dictated addendum note Assessment: Vital Signs: Vital Signs Date Time Temp Pulse Resp B/P Pulse Ox O2 Delivery O2 Flow Rate FiO2 01/18/17 15:34 98.0 75 20 146/76 95 01/16/17 06:07 Room Air I&O Intake and Output 01/18/17 07:00 Intake Total 720 ml Balance 720 ml Intake Oral 720 ml # Voids 1 # Bowel Movements 1 Current Medications: Meds: Current Medications Lorazepam (Ativan) 1 mg 1X ONCE PO Last administered on 01/14/17 12:00; Start 01/14/17 at 12:00; Stop 01/14/17 at 12:01; Status DC Acetaminophen (Tylenol) 650 mg PRN Q6HRS PRN PO PAIN / TEMP; Start 01/14/17 at 14:45 Aspirin (Aspirin Enteric Coated) 81 mg DAILYWBKFT PO Last administered on 08:20; Start 01/15/17 at 08:00 Buspirone HCl (Buspar) 10 mg BID94 PO Last administered on 01/16/17 15:56; Start 01/14/17 at 16:00; Stop 01/16/17 at 17:14; Status DC Clopidogrel Bisulfate (Plavix) 75 mg DAILY PO Last administered on 01/18/17 08 :20; Start 01/15/17 at 09:00 Escitalopram Oxalate (Lexapro) 10 mg DAILY PO Last administered on 01/18/17 08 :20; Start 01/15/17 at 09:00 Albuterol/ Ipratropium (Duoneb) 3 ml PRN QID PRN NEB SHORTNESS OF AIR; Start at 14:45 Levothyroxine Sodium (Synthroid) 88 mcg DAILY06 PO Last administered on 05:32; Start 01/15/17 at 06:00 Lorazepam (Ativan) 0.5 mg HS PO Last administered on 01/18/17 19:19; Start 01/14/17 at 21:00 Magnesium Oxide (Magnesium Oxide) 400 mg BID PO Last administered on 01/18/17 19:20; Start 01/14/17 at 21:00 Multi-Ingredient Ointment (Analgesic [place]) 1 moraima PRN BID PRN TP MUSCLE PAIN; Start 01/14/17 at 14:45 Quetiapine Fumarate (SEROquel) 50 mg QHS PO ; Start 01/14/17 at 21:00; Stop 01/15 at 18:05; Status DC Rivastigmine (Exelon) 1 patch DAILY TD Last administered on 01/18/17 08:19; Start 01/15/17 at 09:00 Atorvastatin Calcium (Lipitor) 40 mg QHS PO Last administered on 01/18/17 19: 20; Start 01/14/17 at 21:00 Magnesium Hydroxide (Milk Of Magnesia) 2,400 mg PRN QHS PRN PO CONSTIPATION; Start 01/14/17 at 15:00 Vitamin D (Vitamin D3) 1,000 unit BIDPCLD PO Last administered on 01/18/17 16: 47; Start 01/14/17 at 17:30 Lorazepam (Ativan) 0.5 mg PRN Q8HRS PRN PO ANXIETY / AGITATION; Start 01/14/17 at 14:45 Divalproex Sodium (Depakote Sprinkles) 500 mg BID PO Last administered on 19:19; Start 01/14/17 at 21:00 Olanzapine (Zyprexa Zydis) 5 mg PRN Q2HR PRN PO ANXIETY / AGITATION Last administered on 01/18/17 05:32; Start 01/14/17 at 15:00 Quetiapine Fumarate (SEROquel) 12.5 mg TID PO Last administered on 01/18/17 19 :20; Start 01/15/17 at 21:00 Buspirone HCl (Buspar) 10 mg QID PO Last administered on 01/18/17 19:19; Start 01/16/17 at 17:00 Active Scripts Active Reported Depakote Sprinkle (Divalproex Sodium) 125 Mg Cap.sprink 500 Mg PO BID EXELON 9.5mg/24hr (Rivastigmine) 1 Each Patch.td24 1 Patch TP DAILY Magnesium Oxide 400 Mg Tablet 400 Mg PO BID Ativan (Lorazepam) 0.5 Mg Tablet 0.5 Mg PO HS Duoneb 0.5-3(2.5) Mg/3 Ml (Albuterol/Ipratropium) 3 Ml Ampul.neb 3 Ml NEB PRN QID PRN Aspir-Low (Aspirin) 81 Mg Tablet.dr 1 Tab PO DAILYWBKFT Vitamin D3 (Cholecalciferol (Vitamin D3)) 1,000 Unit Tablet 1,000 Unit PO BIDPCLD Seroquel (Quetiapine Fumarate) 50 Mg Tablet 50 Mg PO QHS Levothyroxine Sodium 88 Mcg Tablet 88 Mcg PO DAILY06 Atorvastatin Calcium 40 Mg Tablet 40 Mg PO QHS Buspirone Hcl 5 Mg Tablet 10 Mg PO BID94 Do NOT administer with grapefruit juice Analgesic [place] (Methyl Salicylate/Menthol) 29 Gm Oint...g. 1 [place] TP PRN BID PRN Milk Of Magnesia (Magnesium Hydroxide) 2,400 Mg/10 Ml Oral.susp 2,400 Mg PO PRN QHS PRN Tylenol (Acetaminophen) 325 Mg Tablet 650 Mg PO PRN Q6HRS PRN Maximum Acetaminophen dose is 4000 mg in 24 hours from all sources for adults. Ativan (Lorazepam) 0.5 Mg Tablet 0.5 Mg PO PRN Q8HRS PRN Escitalopram Oxalate 10 Mg Tablet 10 Mg PO DAILY Clopidogrel (Clopidogrel Bisulfate) 75 Mg Tablet 75 Mg PO DAILY Diagnosis: Problems: (1) Dementia with behavioral disturbance (2) Anxiety disorder (3) Impulse control disorder (4) Dementia, vascular (5) Dementia, vascular, with depression (6) Dementia, vascular, with delusions (7) Dementia in Alzheimer's disease with depression (8) Dementia in Alzheimer's disease with delusions (9) Medical clearance for psychiatric admission ASHA NAJERA MD Jan 18, 2017 21:00
[2017-01-19] MEDS: LEVOTHYROXINE 88 MCG TABLET PO SCH (05:49)
[2017-01-19 06:26] VITALS: BP 138/68
[2017-01-19] MEDS: CLOPIDOGREL BISULFATE 75 MG TABLET PO SCH (07:58)
[2017-01-19] MEDS: ESCITALOPRAM 10 MG TABLET. PO SCH (07:58)
[2017-01-19] MEDS: MAGNESIUM OXIDE 400 MG TABLET PO SCH ×2 (07:58→19:41)
[2017-01-19] MEDS: ASPIRIN ENTERIC COATED 81 MG TABLET.DR. PO SCH (07:58)
[2017-01-19] MEDS: busPIRone 10 MG TABLET. PO SCH ×4 (07:58→19:41)
[2017-01-19] MEDS: DIVALPROEX 125 MG CAP.SPRINK PO SCH ×2 (07:58→19:41)
[2017-01-19] MEDS: QUEtiapine 25 MG TABLET. PO SCH ×3 (07:59→19:41)
[2017-01-19] MEDS: RIVASTIGMINE 9.5MG PATCH. TD SCH (07:59)
[2017-01-19] MEDS: CHOLECALCIFEROL (VITAMIN D3) 1,000 UNIT TABLET PO SCH ×2 (08:00→17:23)
[2017-01-19 15:50] VITALS: BP 126/60
[2017-01-19] MEDS: ATORVASTATIN CALCIUM 20 MG TABLET PO SCH (19:41)
[2017-01-19] MEDS: LORAZEPAM 0.5 MG TABLET PO SCH (19:43)
--- NOTE | 2017-01-19 20:01 | PDOC ---
Exam [place] Demential Exam: [place] Note: Please also refer to the separate dictated note~for this date of service dictated separately.~Patient seen individually. Discussed the patient with Nursing staff reviewed the chart.~Reviewed interim history and current functioning. Reviewed vital signs,~Labs/ Radiology~and current medications noted below. Continue current treatment with the changes noted in the dictated addendum note Assessment: Vital Signs: Vital Signs Date Time Temp Pulse Resp B/P Pulse Ox O2 Delivery O2 Flow Rate FiO2 01/19/17 15:50 97.3 64 18 126/60 94 01/16/17 06:07 Room Air I&O Intake and Output 01/19/17 07:00 Intake Total 840 ml Balance 840 ml Intake Oral 840 ml Current Medications: Meds: Current Medications Lorazepam (Ativan) 1 mg 1X ONCE PO Last administered on 01/14/17 12:00; Start 01/14/17 at 12:00; Stop 01/14/17 at 12:01; Status DC Acetaminophen (Tylenol) 650 mg PRN Q6HRS PRN PO PAIN / TEMP; Start 01/14/17 at 14:45 Aspirin (Aspirin Enteric Coated) 81 mg DAILYWBKFT PO Last administered on 07:58; Start 01/15/17 at 08:00 Buspirone HCl (Buspar) 10 mg BID94 PO Last administered on 01/16/17 15:56; Start 01/14/17 at 16:00; Stop 01/16/17 at 17:14; Status DC Clopidogrel Bisulfate (Plavix) 75 mg DAILY PO Last administered on 01/19/17 07 :58; Start 01/15/17 at 09:00 Escitalopram Oxalate (Lexapro) 10 mg DAILY PO Last administered on 01/19/17 07 :58; Start 01/15/17 at 09:00 Albuterol/ Ipratropium (Duoneb) 3 ml PRN QID PRN NEB SHORTNESS OF AIR; Start at 14:45 Levothyroxine Sodium (Synthroid) 88 mcg DAILY06 PO Last administered on 05:49; Start 01/15/17 at 06:00 Lorazepam (Ativan) 0.5 mg HS PO Last administered on 01/19/17 19:43; Start 01/14/17 at 21:00 Magnesium Oxide (Magnesium Oxide) 400 mg BID PO Last administered on 01/19/17 19:41; Start 01/14/17 at 21:00 Multi-Ingredient Ointment (Analgesic [place]) 1 moraima PRN BID PRN TP MUSCLE PAIN; Start 01/14/17 at 14:45 Quetiapine Fumarate (SEROquel) 50 mg QHS PO ; Start 01/14/17 at 21:00; Stop 01/15 at 18:05; Status DC Rivastigmine (Exelon) 1 patch DAILY TD Last administered on 01/19/17 07:59; Start 01/15/17 at 09:00 Atorvastatin Calcium (Lipitor) 40 mg QHS PO Last administered on 01/19/17 19: 41; Start 01/14/17 at 21:00 Magnesium Hydroxide (Milk Of Magnesia) 2,400 mg PRN QHS PRN PO CONSTIPATION; Start 01/14/17 at 15:00 Vitamin D (Vitamin D3) 1,000 unit BIDPCLD PO Last administered on 01/19/17 17: 23; Start 01/14/17 at 17:30 Lorazepam (Ativan) 0.5 mg PRN Q8HRS PRN PO ANXIETY / AGITATION; Start 01/14/17 at 14:45 Divalproex Sodium (Depakote Sprinkles) 500 mg BID PO Last administered on 19:41; Start 01/14/17 at 21:00 Olanzapine (Zyprexa Zydis) 5 mg PRN Q2HR PRN PO ANXIETY / AGITATION Last administered on 01/18/17 05:32; Start 01/14/17 at 15:00 Quetiapine Fumarate (SEROquel) 12.5 mg TID PO Last administered on 01/19/17 12 :59; Start 01/15/17 at 21:00; Stop 01/19/17 at 18:00; Status DC Buspirone HCl (Buspar) 10 mg QID PO Last administered on 01/19/17 19:41; Start 01/16/17 at 17:00 Quetiapine Fumarate (SEROquel) 25 mg TID PO Last administered on 01/19/17 19: 41; Start 01/19/17 at 21:00 Active Scripts Active Reported Depakote Sprinkle (Divalproex Sodium) 125 Mg Cap.sprink 500 Mg PO BID EXELON 9.5mg/24hr (Rivastigmine) 1 Each Patch.td24 1 Patch TP DAILY Magnesium Oxide 400 Mg Tablet 400 Mg PO BID Ativan (Lorazepam) 0.5 Mg Tablet 0.5 Mg PO HS Duoneb 0.5-3(2.5) Mg/3 Ml (Albuterol/Ipratropium) 3 Ml Ampul.neb 3 Ml NEB PRN QID PRN Aspir-Low (Aspirin) 81 Mg Tablet.dr 1 Tab PO DAILYWBKFT Vitamin D3 (Cholecalciferol (Vitamin D3)) 1,000 Unit Tablet 1,000 Unit PO BIDPCLD Seroquel (Quetiapine Fumarate) 50 Mg Tablet 50 Mg PO QHS Levothyroxine Sodium 88 Mcg Tablet 88 Mcg PO DAILY06 Atorvastatin Calcium 40 Mg Tablet 40 Mg PO QHS Buspirone Hcl 5 Mg Tablet 10 Mg PO BID94 Do NOT administer with grapefruit juice Analgesic [place] (Methyl Salicylate/Menthol) 29 Gm Oint...g. 1 [place]aima TP PRN BID PRN Milk Of Magnesia (Magnesium Hydroxide) 2,400 Mg/10 Ml Oral.susp 2,400 Mg PO PRN QHS PRN Tylenol (Acetaminophen) 325 Mg Tablet 650 Mg PO PRN Q6HRS PRN Maximum Acetaminophen dose is 4000 mg in 24 hours from all sources for adults. Ativan (Lorazepam) 0.5 Mg Tablet 0.5 Mg PO PRN Q8HRS PRN Escitalopram Oxalate 10 Mg Tablet 10 Mg PO DAILY Clopidogrel (Clopidogrel Bisulfate) 75 Mg Tablet 75 Mg PO DAILY Diagnosis: Problems: (1) Dementia with behavioral disturbance (2) Anxiety disorder (3) Impulse control disorder (4) Dementia, vascular (5) Dementia, vascular, with depression (6) Dementia, vascular, with delusions (7) Dementia in Alzheimer's disease with depression (8) Dementia in Alzheimer's disease with delusions (9) Medical clearance for psychiatric admission ASHA NAJERA MD Jan 19, 2017 20:01
--- NOTE | 2017-01-19 23:44 | PN ---
DATE: 01/17/2017 PSYCHIATRIC PROGRESS NOTE This is late entry of 01/17/2017, covers elements not covered in my initial note. SUBJECTIVE: The patient was quite combative, agitated, aggressive the previous night, swinging at staff, trying to burst open the exit door, received Zyprexa at 9:50 p.m., slept until 11:30. He has been somewhat hypotensive and Seroquel has been reduced as a consequence of that. REVIEW OF SYSTEMS: No CV, , eye, ENT or pulmonary system symptoms on review. Reliability poor. MENTAL STATUS EXAMINATION: Oriented to himself. Insight, judgment, recent and remote memory, attention, concentration, fund of knowledge poor, consistent with his diagnosis mentioned in my initial note. PLAN: Continue low dose Seroquel along with Depakote, Lexapro, BuSpar, Exelon patch. Adjust further as clinically indicated. MAN Shorty NAJERA MD DR: MILKA/abel JOB#: [id number] / [id number]
--- NOTE | 2017-01-19 23:49 | PN ---
DATE: 01/18/2017 PSYCHIATRIC PROGRESS NOTE This is late entry of 01/18/2017, covers elements not covered in my initial note. SUBJECTIVE: The patient was staffed at treatment team meeting with the entire team. The patient's daughter, Dahlia attended. We had a lengthy discussion about patient's diagnosis, progress, medications and placement options. He still remains intermittently agitated, checking the doors, can get easily aggressive. REVIEW OF SYSTEMS: No CV, , pulmonary, eye, ENT system symptoms on review. Reliability poor. MENTAL STATUS EXAMINATION: Oriented to himself. Insight, judgment, recent and remote memory, attention, concentration, fund of knowledge poor, consistent with his diagnosis mentioned in my initial note. IMPRESSION: Major neurocognitive disorder, Lewy body with delusion, depression, behavioral disturbance. Rest unchanged. PLAN: Maintain BuSpar, Lexapro, Exelon patch, Depakote and Seroquel 12.5 t.i.d. The daughter said his blood pressure should be taken just in the right arm and that is something the health care attorney had told about him in the past. This may be a reason why we have been getting low blood pressures but nursing staff will ensure they check it on the right side. May need to adjust Seroquel gradually. Valproic acid level is 56. Depakote remains at 500 b.i.d. MAN Shorty NAJERA MD DR: MILKA/abel JOB#: [id number] / [id number]
[2017-01-20] MEDS: LEVOTHYROXINE 88 MCG TABLET PO SCH (06:06)
[2017-01-20 06:26] VITALS: BP 105/65
[2017-01-20 08:11] LABS: BASO % 1 % (0-3); EOS # 0.1 x10^3/uL (0.0-0.7); EOS % 2 % (0-3); HEMATOCRIT 44.3 % (39.0-53.0); HEMOGLOBIN 14.9 g/dL (13.0-17.5); LYMPH # 1.9 x10^3/uL (1.0-4.8); LYMPH % 32 % (24-48); MEAN CORPUSCULAR HEMOGLOBIN 35 pg (25-35); MEAN CORPUSCULAR HGB CONC 34 g/dL (31-37); MEAN CORPUSCULAR VOLUME 104 fL (79-100); MONO # 0.6 x10^3/uL (0.0-1.1); MONO % 11 % (0-9); NEUT # 3.2 x10^3uL (1.8-7.7); NEUT % 54 % (31-73); PLATELET COUNT 151 x10^3/uL (140-400); RED BLOOD COUNT 4.27 x10^6/uL (4.30-5.70); RED CELL DISTRIBUTION WIDTH 13.3 % (11.5-14.5); WHITE BLOOD COUNT 5.9 x10^3/uL (4.0-11.0)
[2017-01-20 08:16] LABS: ALBUMIN 3.5 g/dL (3.4-5.0); ALBUMIN/GLOBULIN RATIO 0.8 (1.0-1.7); ALK PHOS 86 U/L (46-116); ALT (SGPT) 36 U/L (16-63); ANION GAP 6 (6-14); AST (SGOT) 20 U/L (15-37); BLOOD UREA NITROGEN 20 mg/dL (8-26); BUN/CREATININE RATIO 18 (6-20); CALCIUM 9.1 mg/dL (8.5-10.1); CARBON DIOXIDE 31 mmol/L (21-32); CHLORIDE 104 mmol/L (98-107); CREATININE 1.1 mg/dL (0.7-1.3); GLUCOSE 128 mg/dL (70-99); MAGNESIUM 2.1 mg/dL (1.8-2.4); POTASSIUM 4.4 mmol/L (3.5-5.1); SODIUM 141 mmol/L (136-145); TOTAL BILIRUBIN 0.4 mg/dL (0.2-1.0); TOTAL PROTEIN 7.8 g/dL (6.4-8.2); VAL ACID 71 mcg/mL (50-100)
[2017-01-20] MEDS: busPIRone 10 MG TABLET. PO SCH ×4 (08:25→19:30)
[2017-01-20] MEDS: ASPIRIN ENTERIC COATED 81 MG TABLET.DR. PO SCH (08:25)
[2017-01-20] MEDS: MAGNESIUM OXIDE 400 MG TABLET PO SCH ×2 (08:26→19:30)
[2017-01-20] MEDS: DIVALPROEX 125 MG CAP.SPRINK PO SCH ×2 (08:26→19:30)
[2017-01-20] MEDS: ESCITALOPRAM 10 MG TABLET. PO SCH (08:26)
[2017-01-20] MEDS: CLOPIDOGREL BISULFATE 75 MG TABLET PO SCH (08:26)
[2017-01-20] MEDS: QUEtiapine 25 MG TABLET. PO SCH ×3 (08:27→19:30)
[2017-01-20] MEDS: RIVASTIGMINE 9.5MG PATCH. TD SCH (08:28)
[2017-01-20] MEDS: CHOLECALCIFEROL (VITAMIN D3) 1,000 UNIT TABLET PO SCH ×2 (13:58→17:31)
[2017-01-20 15:46] VITALS: BP 132/63
[2017-01-20] MEDS: ATORVASTATIN CALCIUM 20 MG TABLET PO SCH (19:30)
[2017-01-20] MEDS: LORAZEPAM 0.5 MG TABLET PO SCH (19:32)
--- NOTE | 2017-01-20 21:59 | PDOC ---
Exam [place] [facility]ement[facility] Exam: [place] Note: Please also refer to the separate dictated note~for this date of service dictated separately.~Patient seen individually. Discussed the patient with Nursing staff reviewed the chart.~Reviewed interim history and current functioning. Reviewed vital signs,~Labs/ Radiology~and current medications noted below. Continue current treatment with the changes noted in the dictated addendum note Assessment: Vital Signs: Vital Signs Date Time Temp Pulse Resp B/P Pulse Ox O2 Delivery O2 Flow Rate FiO2 01/20/17 15:46 98.0 57 18 132/63 97 Room Air I&O Intake and Output 01/20/17 07:00 Intake Total 840 ml Balance 840 ml Intake Oral 840 ml # Voids 3 Labs: Laboratory Tests Test 01/20/17 07:37 White Blood Count 5.9x10^3/uL (4.0-11.0) Red Blood Count 4.27x10^6/uL (4.30-5.70) L Hemoglobin 14.9g/dL (13.0-17.5) Hematocrit 44.3% (39.0-53.0) Mean Corpuscular Volume 104fL (79-100) H Mean Corpuscular Hemoglobin 35pg (25-35) Mean Corpuscular Hemoglobin Concent 34g/dL (31-37) Red Cell Distribution Width 13.3% (11.5-14.5) Platelet Count 151x10^3/uL (140-400) Neutrophils (%) (Auto) 54% (31-73) Lymphocytes (%) (Auto) 32% (24-48) Monocytes (%) (Auto) 11% (0-9) H Eosinophils (%) (Auto) 2% (0-3) Basophils (%) (Auto) 1% (0-3) Neutrophils # (Auto) 3.2x10^3uL (1.8-7.7) Lymphocytes # (Auto) 1.9x10^3/uL (1.0-4.8) Monocytes # (Auto) 0.6x10^3/uL (0.0-1.1) Eosinophils # (Auto) 0.1x10^3/uL (0.0-0.7) Basophils # (Auto) 0.0x10^3/uL (0.0-0.2) Sodium Level 141mmol/L (136-145) Potassium Level 4.4mmol/L (3.5-5.1) Chloride Level 104mmol/L (98-107) Carbon Dioxide Level 31mmol/L (21-32) Anion Gap 6 (6-14) Blood Urea Nitrogen 20mg/dL (8-26) Creatinine 1.1mg/dL (0.7-1.3) Estimated GFR (Cockcroft-Gault) 66.0 BUN/Creatinine Ratio 18 (6-20) Glucose Level 128mg/dL (70-99) H Calcium Level 9.1mg/dL (8.5-10.1) Magnesium Level 2.1mg/dL (1.8-2.4) Total Bilirubin 0.4mg/dL (0.2-1.0) Aspartate Amino Transferase (AST) 20U/L (15-37) Alanine Aminotransferase (ALT) 36U/L (16-63) Alkaline Phosphatase 86U/L (46-116) Total Protein 7.8g/dL (6.4-8.2) Albumin 3.5g/dL (3.4-5.0) Albumin/Globulin Ratio 0.8 (1.0-1.7) L Valproic Acid Level 71mcg/mL (50-100) Valproic Acid Last Dose Date 01/18/17 Valproic Acid Last Dose Time 2100 Current Medications: Meds: Current Medications Lorazepam (Ativan) 1 mg 1X ONCE PO Last administered on 01/14/17 12:00; Start 01/14/17 at 12:00; Stop 01/14/17 at 12:01; Status DC Acetaminophen (Tylenol) 650 mg PRN Q6HRS PRN PO PAIN / TEMP; Start 01/14/17 at 14:45 Aspirin (Aspirin Enteric Coated) 81 mg DAILYWBKFT PO Last administered on 08:25; Start 01/15/17 at 08:00 Buspirone HCl (Buspar) 10 mg BID94 PO Last administered on 01/16/17 15:56; Start 01/14/17 at 16:00; Stop 01/16/17 at 17:14; Status DC Clopidogrel Bisulfate (Plavix) 75 mg DAILY PO Last administered on 01/20/17 08 :26; Start 01/15/17 at 09:00 Escitalopram Oxalate (Lexapro) 10 mg DAILY PO Last administered on 01/20/17 08 :26; Start 01/15/17 at 09:00 Albuterol/ Ipratropium (Duoneb) 3 ml PRN QID PRN NEB SHORTNESS OF AIR; Start at 14:45 Levothyroxine Sodium (Synthroid) 88 mcg DAILY06 PO Last administered on 06:06; Start 01/15/17 at 06:00 Lorazepam (Ativan) 0.5 mg HS PO Last administered on 01/20/17 19:32; Start 01/14/17 at 21:00 Magnesium Oxide (Magnesium Oxide) 400 mg BID PO Last administered on 01/20/17 19:30; Start 01/14/17 at 21:00 Multi-Ingredient Ointment (Analgesic [place]) 1 moraima PRN BID PRN TP MUSCLE PAIN; Start 01/14/17 at 14:45 Quetiapine Fumarate (SEROquel) 50 mg QHS PO ; Start 01/14/17 at 21:00; Stop 01/15 at 18:05; Status DC Rivastigmine (Exelon) 1 patch DAILY TD Last administered on 01/20/17 08:28; Start 01/15/17 at 09:00 Atorvastatin Calcium (Lipitor) 40 mg QHS PO Last administered on 01/20/17 19: 30; Start 01/14/17 at 21:00 Magnesium Hydroxide (Milk Of Magnesia) 2,400 mg PRN QHS PRN PO CONSTIPATION; Start 01/14/17 at 15:00 Vitamin D (Vitamin D3) 1,000 unit BIDPCLD PO Last administered on 01/20/17 17: 31; Start 01/14/17 at 17:30 Lorazepam (Ativan) 0.5 mg PRN Q8HRS PRN PO ANXIETY / AGITATION; Start 01/14/17 at 14:45 Divalproex Sodium (Depakote Sprinkles) 500 mg BID PO Last administered on 19:30; Start 01/14/17 at 21:00 Olanzapine (Zyprexa Zydis) 5 mg PRN Q2HR PRN PO ANXIETY / AGITATION Last administered on 01/18/17 05:32; Start 01/14/17 at 15:00 Quetiapine Fumarate (SEROquel) 12.5 mg TID PO Last administered on 01/19/17 12 :59; Start 01/15/17 at 21:00; Stop 01/19/17 at 18:00; Status DC Buspirone HCl (Buspar) 10 mg QID PO Last administered on 01/20/17 19:30; Start 01/16/17 at 17:00 Quetiapine Fumarate (SEROquel) 25 mg TID PO Last administered on 01/20/17 19: 30; Start 01/19/17 at 21:00 Active Scripts Active Reported Depakote Sprinkle (Divalproex Sodium) 125 Mg Cap.sprink 500 Mg PO BID EXELON 9.5mg/24hr (Rivastigmine) 1 Each Patch.td24 1 Patch TP DAILY Magnesium Oxide 400 Mg Tablet 400 Mg PO BID Ativan (Lorazepam) 0.5 Mg Tablet 0.5 Mg PO HS Duoneb 0.5-3(2.5) Mg/3 Ml (Albuterol/Ipratropium) 3 Ml Ampul.neb 3 Ml NEB PRN QID PRN Aspir-Low (Aspirin) 81 Mg Tablet.dr 1 Tab PO DAILYWBKFT Vitamin D3 (Cholecalciferol (Vitamin D3)) 1,000 Unit Tablet 1,000 Unit PO BIDPCLD Seroquel (Quetiapine Fumarate) 50 Mg Tablet 50 Mg PO QHS Levothyroxine Sodium 88 Mcg Tablet 88 Mcg PO DAILY06 Atorvastatin Calcium 40 Mg Tablet 40 Mg PO QHS Buspirone Hcl 5 Mg Tablet 10 Mg PO BID94 Do NOT administer with grapefruit juice Analgesic [place] (Methyl Salicylate/Menthol) 29 Gm Oint...g. 1 [place] TP PRN BID PRN Milk Of Magnesia (Magnesium Hydroxide) 2,400 Mg/10 Ml Oral.susp 2,400 Mg PO PRN QHS PRN Tylenol (Acetaminophen) 325 Mg Tablet 650 Mg PO PRN Q6HRS PRN Maximum Acetaminophen dose is 4000 mg in 24 hours from all sources for adults. Ativan (Lorazepam) 0.5 Mg Tablet 0.5 Mg PO PRN Q8HRS PRN Escitalopram Oxalate 10 Mg Tablet 10 Mg PO DAILY Clopidogrel (Clopidogrel Bisulfate) 75 Mg Tablet 75 Mg PO DAILY Diagnosis: Problems: (1) Medical clearance for psychiatric admission (2) Dementia in Alzheimer's disease with delusions (3) Dementia in Alzheimer's disease with depression (4) Dementia, vascular, with delusions (5) Dementia, vascular, with depression (6) Dementia, vascular (7) Impulse control disorder (8) Anxiety disorder (9) Dementia with behavioral disturbance ASHA NAJERA MD Jan 20, 2017 21:59
[2017-01-21 06:09] VITALS: BP 95/62
[2017-01-21] MEDS: LEVOTHYROXINE 88 MCG TABLET PO SCH (06:26)
[2017-01-21] MEDS: CLOPIDOGREL BISULFATE 75 MG TABLET PO SCH (08:29)
[2017-01-21] MEDS: DIVALPROEX 125 MG CAP.SPRINK PO SCH ×2 (08:29→19:24)
[2017-01-21] MEDS: ASPIRIN ENTERIC COATED 81 MG TABLET.DR. PO SCH (08:30)
[2017-01-21] MEDS: RIVASTIGMINE 9.5MG PATCH. TD SCH (08:30)
[2017-01-21] MEDS: busPIRone 10 MG TABLET. PO SCH ×4 (08:30→19:24)
[2017-01-21] MEDS: QUEtiapine 25 MG TABLET. PO SCH ×3 (08:30→19:24)
[2017-01-21] MEDS: ESCITALOPRAM 10 MG TABLET. PO SCH (08:30)
[2017-01-21] MEDS: MAGNESIUM OXIDE 400 MG TABLET PO SCH ×2 (08:30→19:23)
[2017-01-21] MEDS: CHOLECALCIFEROL (VITAMIN D3) 1,000 UNIT TABLET PO SCH ×2 (08:31→17:08)
[2017-01-21 16:07] VITALS: BP 132/87
[2017-01-21] MEDS: OLANZAPINE ZYDIS 5 MG TAB.RAPDIS PO PRN (18:37)
[2017-01-21] MEDS: LORAZEPAM 0.5 MG TABLET PO SCH (19:23)
[2017-01-21] MEDS: ATORVASTATIN CALCIUM 20 MG TABLET PO SCH (19:24)
--- NOTE | 2017-01-21 20:07 | PN ---
DATE: 01/19/2017 PSYCHIATRIC PROGRESS NOTE This is late entry of 01/19/2017, covers elements not covered in my initial note. SUBJECTIVE: The patient remains confused, did better much of the day, but got quite agitated with another demented psychotic patient later in the day and was charging at this patient till staff intervened. REVIEW OF SYSTEMS: No CV, , pulmonary, eye, ENT system symptoms on review. Reliability poor. MENTAL STATUS EXAMINATION: Oriented to himself. Insight, judgment, recent and remote memory, attention, concentration, fund of knowledge poor, consistent with his diagnosis mentioned in my initial note. PLAN: Increase Seroquel from 12.5 mg 3 times a day to 25 mg 3 times a day. Blood pressure is stable if taken on the left arm. Continue BuSpar 10 mg 4 times a day, Lexapro 10 mg daily, Exelon patch 9.5 mg daily, Depakote 500 b.i.d., level therapeutic at 56. ASHA NAJERA MD DR: MILKA/abel JOB#: [id number] / [id number]
--- NOTE | 2017-01-21 20:09 | PN ---
DATE: 01/20/2017 PSYCHIATRIC PROGRESS NOTE This is late entry of 01/20/2017, covers elements not covered in my initial note. SUBJECTIVE: The patient was combative the previous night, agitated, cursing at staff for staff to change him. He has done better during the day on 01/20/2017. REVIEW OF SYSTEMS: No CV, , pulmonary, eye, ENT system symptoms on review. Reliability poor. MENTAL STATUS EXAMINATION: Oriented to himself. Insight, judgment, recent and remote memory, attention, concentration, fund of knowledge poor, consistent with his diagnosis mentioned in my initial note. PLAN: Continue current psychotropics. We will see how he does over the next 24 hours and then adjust further as clinically indicated. MAN Shorty NAJERA MD DR: MILKA/abel JOB#: [id number] / [id number]
--- NOTE | 2017-01-21 21:19 | PDOC ---
Exam [place] Demential Exam: [place] Note: Please also refer to the separate dictated note~for this date of service dictated separately.~Patient seen individually. Discussed the patient with Nursing staff reviewed the chart.~Reviewed interim history and current functioning. Reviewed vital signs,~Labs/ Radiology~and current medications noted below. Continue current treatment with the changes noted in the dictated addendum note Assessment: Vital Signs: Vital Signs Date Time Temp Pulse Resp B/P Pulse Ox O2 Delivery O2 Flow Rate FiO2 01/21/17 16:07 97.1 70 20 132/87 96 01/21/17 06:09 Room Air I&O Intake and Output 01/21/17 07:00 Intake Total 960 ml Balance 960 ml Intake Oral 960 ml Current Medications: Meds: Current Medications Lorazepam (Ativan) 1 mg 1X ONCE PO Last administered on 01/14/17 12:00; Start 01/14/17 at 12:00; Stop 01/14/17 at 12:01; Status DC Acetaminophen (Tylenol) 650 mg PRN Q6HRS PRN PO PAIN / TEMP; Start 01/14/17 at 14:45 Aspirin (Aspirin Enteric Coated) 81 mg DAILYWBKFT PO Last administered on 08:30; Start 01/15/17 at 08:00 Buspirone HCl (Buspar) 10 mg BID94 PO Last administered on 01/16/17 15:56; Start 01/14/17 at 16:00; Stop 01/16/17 at 17:14; Status DC Clopidogrel Bisulfate (Plavix) 75 mg DAILY PO Last administered on 01/21/17 08 :29; Start 01/15/17 at 09:00 Escitalopram Oxalate (Lexapro) 10 mg DAILY PO Last administered on 01/21/17 08 :30; Start 01/15/17 at 09:00 Albuterol/ Ipratropium (Duoneb) 3 ml PRN QID PRN NEB SHORTNESS OF AIR; Start at 14:45 Levothyroxine Sodium (Synthroid) 88 mcg DAILY06 PO Last administered on 06:26; Start 01/15/17 at 06:00 Lorazepam (Ativan) 0.5 mg HS PO Last administered on 01/21/17 19:23; Start 01/14/17 at 21:00 Magnesium Oxide (Magnesium Oxide) 400 mg BID PO Last administered on 01/21/17 19:23; Start 01/14/17 at 21:00 Multi-Ingredient Ointment (Analgesic [place]) 1 moraima PRN BID PRN TP MUSCLE PAIN; Start 01/14/17 at 14:45 Quetiapine Fumarate (SEROquel) 50 mg QHS PO ; Start 01/14/17 at 21:00; Stop 01/15 at 18:05; Status DC Rivastigmine (Exelon) 1 patch DAILY TD Last administered on 01/21/17 08:30; Start 01/15/17 at 09:00 Atorvastatin Calcium (Lipitor) 40 mg QHS PO Last administered on 01/21/17 19: 24; Start 01/14/17 at 21:00 Magnesium Hydroxide (Milk Of Magnesia) 2,400 mg PRN QHS PRN PO CONSTIPATION; Start 01/14/17 at 15:00 Vitamin D (Vitamin D3) 1,000 unit BIDPCLD PO Last administered on 01/21/17 17: 08; Start 01/14/17 at 17:30 Lorazepam (Ativan) 0.5 mg PRN Q8HRS PRN PO ANXIETY / AGITATION; Start 01/14/17 at 14:45 Divalproex Sodium (Depakote Sprinkles) 500 mg BID PO Last administered on 19:24; Start 01/14/17 at 21:00 Olanzapine (Zyprexa Zydis) 5 mg PRN Q2HR PRN PO ANXIETY / AGITATION Last administered on 01/18/17 05:32; Start 01/14/17 at 15:00 Quetiapine Fumarate (SEROquel) 12.5 mg TID PO Last administered on 01/19/17 12 :59; Start 01/15/17 at 21:00; Stop 01/19/17 at 18:00; Status DC Buspirone HCl (Buspar) 10 mg QID PO Last administered on 01/21/17 19:24; Start 01/16/17 at 17:00 Quetiapine Fumarate (SEROquel) 25 mg TID PO Last administered on 01/21/17 19: 24; Start 01/19/17 at 21:00 Active Scripts Active Reported Depakote Sprinkle (Divalproex Sodium) 125 Mg Cap.sprink 500 Mg PO BID EXELON 9.5mg/24hr (Rivastigmine) 1 Each Patch.td24 1 Patch TP DAILY Magnesium Oxide 400 Mg Tablet 400 Mg PO BID Ativan (Lorazepam) 0.5 Mg Tablet 0.5 Mg PO HS Duoneb 0.5-3(2.5) Mg/3 Ml (Albuterol/Ipratropium) 3 Ml Ampul.neb 3 Ml NEB PRN QID PRN Aspir-Low (Aspirin) 81 Mg Tablet.dr 1 Tab PO DAILYWBKFT Vitamin D3 (Cholecalciferol (Vitamin D3)) 1,000 Unit Tablet 1,000 Unit PO BIDPCLD Seroquel (Quetiapine Fumarate) 50 Mg Tablet 50 Mg PO QHS Levothyroxine Sodium 88 Mcg Tablet 88 Mcg PO DAILY06 Atorvastatin Calcium 40 Mg Tablet 40 Mg PO QHS Buspirone Hcl 5 Mg Tablet 10 Mg PO BID94 Do NOT administer with grapefruit juice Analgesic [place] (Methyl Salicylate/Menthol) 29 Gm Oint...g. 1 Moraima TP PRN BID PRN Milk Of Magnesia (Magnesium Hydroxide) 2,400 Mg/10 Ml Oral.susp 2,400 Mg PO PRN QHS PRN Tylenol (Acetaminophen) 325 Mg Tablet 650 Mg PO PRN Q6HRS PRN Maximum Acetaminophen dose is 4000 mg in 24 hours from all sources for adults. Ativan (Lorazepam) 0.5 Mg Tablet 0.5 Mg PO PRN Q8HRS PRN Escitalopram Oxalate 10 Mg Tablet 10 Mg PO DAILY Clopidogrel (Clopidogrel Bisulfate) 75 Mg Tablet 75 Mg PO DAILY Diagnosis: Problems: (1) Medical clearance for psychiatric admission (2) Dementia in Alzheimer's disease with delusions (3) Dementia in Alzheimer's disease with depression (4) Dementia, vascular, with delusions (5) Dementia, vascular, with depression (6) Dementia, vascular (7) Impulse control disorder (8) Anxiety disorder (9) Dementia with behavioral disturbance ASHA NAJERA MD Jan 21, 2017 21:19
[2017-01-22] MEDS: LEVOTHYROXINE 88 MCG TABLET PO SCH (05:51)
[2017-01-22 06:51] VITALS: BP 129/75
[2017-01-22] MEDS: ASPIRIN ENTERIC COATED 81 MG TABLET.DR. PO SCH (08:43)
[2017-01-22] MEDS: DIVALPROEX 125 MG CAP.SPRINK PO SCH ×2 (08:43→19:47)
[2017-01-22] MEDS: ESCITALOPRAM 10 MG TABLET. PO SCH (08:43)
[2017-01-22] MEDS: RIVASTIGMINE 9.5MG PATCH. TD SCH (08:43)
[2017-01-22] MEDS: QUEtiapine 25 MG TABLET. PO SCH ×3 (08:43→19:47)
[2017-01-22] MEDS: CHOLECALCIFEROL (VITAMIN D3) 1,000 UNIT TABLET PO SCH ×2 (08:43→17:22)
[2017-01-22] MEDS: CLOPIDOGREL BISULFATE 75 MG TABLET PO SCH (08:43)
[2017-01-22] MEDS: MAGNESIUM OXIDE 400 MG TABLET PO SCH ×2 (08:43→19:47)
[2017-01-22] MEDS: busPIRone 10 MG TABLET. PO SCH ×4 (08:45→19:47)
[2017-01-22] MEDS: OLANZAPINE ZYDIS 5 MG TAB.RAPDIS PO PRN (08:57)
[2017-01-22 15:21] VITALS: BP 137/81
[2017-01-22] MEDS: ATORVASTATIN CALCIUM 20 MG TABLET PO SCH (19:47)
--- NOTE | 2017-01-22 20:53 | PDOC ---
Exam [place] Demential Exam: [place] Note: Please also refer to the separate dictated note~for this date of service dictated separately.~Patient seen individually. Discussed the patient with Nursing staff reviewed the chart.~Reviewed interim history and current functioning. Reviewed vital signs,~Labs/ Radiology~and current medications noted below. Continue current treatment with the changes noted in the dictated addendum note Assessment: Vital Signs: Vital Signs Date Time Temp Pulse Resp B/P Pulse Ox O2 Delivery O2 Flow Rate FiO2 01/22/17 15:21 97.5 52 17 137/81 96.0 01/22/17 06:51 97 01/21/17 06:09 Room Air I&O Intake and Output 01/22/17 07:00 Intake Total 720 ml Balance 720 ml Intake Oral 720 ml # Bowel Movements 1 Current Medications: Meds: Current Medications Lorazepam (Ativan) 1 mg 1X ONCE PO Last administered on 01/14/17 12:00; Start 01/14/17 at 12:00; Stop 01/14/17 at 12:01; Status DC Acetaminophen (Tylenol) 650 mg PRN Q6HRS PRN PO PAIN / TEMP; Start 01/14/17 at 14:45 Aspirin (Aspirin Enteric Coated) 81 mg DAILYWBKFT PO Last administered on 08:43; Start 01/15/17 at 08:00 Buspirone HCl (Buspar) 10 mg BID94 PO Last administered on 01/16/17 15:56; Start 01/14/17 at 16:00; Stop 01/16/17 at 17:14; Status DC Clopidogrel Bisulfate (Plavix) 75 mg DAILY PO Last administered on 01/22/17 08 :43; Start 01/15/17 at 09:00 Escitalopram Oxalate (Lexapro) 10 mg DAILY PO Last administered on 01/22/17 08 :43; Start 01/15/17 at 09:00 Albuterol/ Ipratropium (Duoneb) 3 ml PRN QID PRN NEB SHORTNESS OF AIR; Start at 14:45 Levothyroxine Sodium (Synthroid) 88 mcg DAILY06 PO Last administered on 05:51; Start 01/15/17 at 06:00 Lorazepam (Ativan) 0.5 mg HS PO Last administered on 01/21/17 19:23; Start 01/14/17 at 21:00 Magnesium Oxide (Magnesium Oxide) 400 mg BID PO Last administered on 01/22/17 19:47; Start 01/14/17 at 21:00 Multi-Ingredient Ointment (Analgesic [place]) 1 moraima PRN BID PRN TP MUSCLE PAIN; Start 01/14/17 at 14:45 Quetiapine Fumarate (SEROquel) 50 mg QHS PO ; Start 01/14/17 at 21:00; Stop 01/15 at 18:05; Status DC Rivastigmine (Exelon) 1 patch DAILY TD Last administered on 01/22/17 08:43; Start 01/15/17 at 09:00 Atorvastatin Calcium (Lipitor) 40 mg QHS PO Last administered on 01/22/17 19: 47; Start 01/14/17 at 21:00 Magnesium Hydroxide (Milk Of Magnesia) 2,400 mg PRN QHS PRN PO CONSTIPATION; Start 01/14/17 at 15:00 Vitamin D (Vitamin D3) 1,000 unit BIDPCLD PO Last administered on 01/22/17 17: 22; Start 01/14/17 at 17:30 Lorazepam (Ativan) 0.5 mg PRN Q8HRS PRN PO ANXIETY / AGITATION; Start 01/14/17 at 14:45 Divalproex Sodium (Depakote Sprinkles) 500 mg BID PO Last administered on 19:47; Start 01/14/17 at 21:00 Olanzapine (Zyprexa Zydis) 5 mg PRN Q2HR PRN PO ANXIETY / AGITATION Last administered on 01/22/17 08:57; Start 01/14/17 at 15:00 Quetiapine Fumarate (SEROquel) 12.5 mg TID PO Last administered on 01/19/17 12 :59; Start 01/15/17 at 21:00; Stop 01/19/17 at 18:00; Status DC Buspirone HCl (Buspar) 10 mg QID PO Last administered on 01/22/17 19:47; Start 01/16/17 at 17:00 Quetiapine Fumarate (SEROquel) 25 mg TID PO Last administered on 01/22/17 13: 30; Start 01/19/17 at 21:00; Stop 01/22/17 at 18:30; Status DC Quetiapine Fumarate (SEROquel) 37.5 mg TID PO Last administered on 01/22/17t 19 :47; Start 01/22/17 at 21:00 Active Scripts Active Reported Depakote Sprinkle (Divalproex Sodium) 125 Mg Cap.sprink 500 Mg PO BID EXELON 9.5mg/24hr (Rivastigmine) 1 Each Patch.td24 1 Patch TP DAILY Magnesium Oxide 400 Mg Tablet 400 Mg PO BID Ativan (Lorazepam) 0.5 Mg Tablet 0.5 Mg PO HS Duoneb 0.5-3(2.5) Mg/3 Ml (Albuterol/Ipratropium) 3 Ml Ampul.neb 3 Ml NEB PRN QID PRN Aspir-Low (Aspirin) 81 Mg Tablet.dr 1 Tab PO DAILYWBKFT Vitamin D3 (Cholecalciferol (Vitamin D3)) 1,000 Unit Tablet 1,000 Unit PO BIDPCLD Seroquel (Quetiapine Fumarate) 50 Mg Tablet 50 Mg PO QHS Levothyroxine Sodium 88 Mcg Tablet 88 Mcg PO DAILY06 Atorvastatin Calcium 40 Mg Tablet 40 Mg PO QHS Buspirone Hcl 5 Mg Tablet 10 Mg PO BID94 Do NOT administer with grapefruit juice Analgesic [place] (Methyl Salicylate/Menthol) 29 Gm Oint...g. 1 [place]aima TP PRN BID PRN Milk Of Magnesia (Magnesium Hydroxide) 2,400 Mg/10 Ml Oral.susp 2,400 Mg PO PRN QHS PRN Tylenol (Acetaminophen) 325 Mg Tablet 650 Mg PO PRN Q6HRS PRN Maximum Acetaminophen dose is 4000 mg in 24 hours from all sources for adults. Ativan (Lorazepam) 0.5 Mg Tablet 0.5 Mg PO PRN Q8HRS PRN Escitalopram Oxalate 10 Mg Tablet 10 Mg PO DAILY Clopidogrel (Clopidogrel Bisulfate) 75 Mg Tablet 75 Mg PO DAILY Diagnosis: Problems: (1) Medical clearance for psychiatric admission (2) Dementia in Alzheimer's disease with delusions (3) Dementia in Alzheimer's disease with depression (4) Dementia, vascular, with delusions (5) Dementia, vascular, with depression (6) Dementia, vascular (7) Impulse control disorder (8) Anxiety disorder (9) Dementia with behavioral disturbance ASHA NAJERA MD Jan 22, 2017 20:52
[2017-01-22] MEDS: LORAZEPAM 0.5 MG TABLET PO SCH (21:00)
--- NOTE | 2017-01-22 21:12 | PN ---
DATE: 01/21/2017 PSYCHIATRIC PROGRESS NOTE This is late entry of 01/21/2017, covers elements not covered in my initial note. SUBJECTIVE: Overall, the patient remains confused, intermittently anxious, restless, but redirectable, less paranoid. REVIEW OF SYSTEMS: No CV, , pulmonary, eye, ENT system symptoms on review. Reliability poor. MENTAL STATUS EXAMINATION: Oriented to himself. Insight, judgment, recent and remote memory, attention, concentration, fund of knowledge poor, consistent with his diagnosis mentioned in my initial note. LABORATORY DATA: Valproic acid level 71 on 01/20/2017. PLAN: Continue Depakote 500 b.i.d., Exelon 9.5 mg a day, Lexapro 10 mg a day, BuSpar 10 mg 4 times a day. Adjust further as clinically indicated. MAN Shorty NAJERA MD DR: MILKA/abel JOB#: [id number] / [id number]
[2017-01-23] MEDS: LEVOTHYROXINE 88 MCG TABLET PO SCH (05:58)
[2017-01-23 07:49] VITALS: BP 133/85
[2017-01-23] MEDS: busPIRone 10 MG TABLET. PO SCH ×4 (08:50→19:50)
[2017-01-23] MEDS: QUEtiapine 25 MG TABLET. PO SCH ×3 (08:50→19:50)
[2017-01-23] MEDS: CHOLECALCIFEROL (VITAMIN D3) 1,000 UNIT TABLET PO SCH ×2 (08:51→17:07)
[2017-01-23] MEDS: ESCITALOPRAM 10 MG TABLET. PO SCH (08:51)
[2017-01-23] MEDS: CLOPIDOGREL BISULFATE 75 MG TABLET PO SCH (08:51)
[2017-01-23] MEDS: ASPIRIN ENTERIC COATED 81 MG TABLET.DR. PO SCH (08:51)
[2017-01-23] MEDS: DIVALPROEX 125 MG CAP.SPRINK PO SCH ×2 (08:52→19:50)
[2017-01-23] MEDS: MAGNESIUM OXIDE 400 MG TABLET PO SCH ×2 (08:52→19:50)
[2017-01-23] MEDS: RIVASTIGMINE 9.5MG PATCH. TD SCH (08:53)
[2017-01-23 15:12] VITALS: BP 108/68
--- NOTE | 2017-01-23 19:02 | PN ---
DATE: 01/22/2017 PSYCHIATRIC PROGRESS NOTE This is late entry of 01/22/2017, covers elements not covered in my initial note. SUBJECTIVE: The patient has been quite labile, anxious, was swinging at one of the nursing staff members, received Zyprexa 5 mg, then did better. REVIEW OF SYSTEMS: No CV, , pulmonary, eye, ENT system symptoms on review. Reliability poor. MENTAL STATUS EXAMINATION: Oriented to himself. Insight, judgment, recent and remote memory, attention, concentration, fund of knowledge poor, consistent with his diagnosis mentioned in my initial note. IMPRESSION: Major neurocognitive disorder, Alzheimer, vascular with depression, delusion, behavioral disturbance. Rest diagnoses unchanged. PLAN: Increase Seroquel from 25 mg t.i.d. to 37.5 mg t.i.d. Stop the bedtime Ativan 0.5 mg, continue BuSpar 10 mg 4 times a day, Lexapro 10 mg a day, Exelon patch 9.5 mg a day, Depakote 500 mg b.i.d., level is therapeutic at 71. Adjust further as clinically indicated. MAN Shorty NAJERA MD DR: MILKA/abel JOB#: [id number] / [id number]
[2017-01-23] MEDS: ATORVASTATIN CALCIUM 20 MG TABLET PO SCH (19:50)
--- NOTE | 2017-01-23 20:50 | PDOC ---
Exam [place] Demential Exam: [place] Note: Please also refer to the separate dictated note~for this date of service dictated separately.~Patient seen individually. Discussed the patient with Nursing staff reviewed the chart.~Reviewed interim history and current functioning. Reviewed vital signs,~Labs/ Radiology~and current medications noted below. Continue current treatment with the changes noted in the dictated addendum note Assessment: Vital Signs: Vital Signs Date Time Temp Pulse Resp B/P Pulse Ox O2 Delivery O2 Flow Rate FiO2 01/23/17 15:12 97.8 58 18 108/68 94 01/23/17 07:49 Room Air 01/22/17 15:21 96.0 I&O Intake and Output 01/23/17 07:00 Intake Total 600 ml Balance 600 ml Intake Oral 600 ml # Voids 2 # Bowel Movements 2 Current Medications: Meds: Current Medications Lorazepam (Ativan) 1 mg 1X ONCE PO Last administered on 01/14/17 12:00; Start 01/14/17 at 12:00; Stop 01/14/17 at 12:01; Status DC Acetaminophen (Tylenol) 650 mg PRN Q6HRS PRN PO PAIN / TEMP; Start 01/14/17 at 14:45 Aspirin (Aspirin Enteric Coated) 81 mg DAILYWBKFT PO Last administered on 08:51; Start 01/15/17 at 08:00 Buspirone HCl (Buspar) 10 mg BID94 PO Last administered on 01/16/17 15:56; Start 01/14/17 at 16:00; Stop 01/16/17 at 17:14; Status DC Clopidogrel Bisulfate (Plavix) 75 mg DAILY PO Last administered on 01/23/17 08 :51; Start 01/15/17 at 09:00 Escitalopram Oxalate (Lexapro) 10 mg DAILY PO Last administered on 01/23/17 08 :51; Start 01/15/17 at 09:00 Albuterol/ Ipratropium (Duoneb) 3 ml PRN QID PRN NEB SHORTNESS OF AIR; Start at 14:45 Levothyroxine Sodium (Synthroid) 88 mcg DAILY06 PO Last administered on 05:58; Start 01/15/17 at 06:00 Lorazepam (Ativan) 0.5 mg HS PO Last administered on 01/21/17 19:23; Start 01/14/17 at 21:00; Stop 01/23/17 at 06:58; Status DC Magnesium Oxide (Magnesium Oxide) 400 mg BID PO Last administered on 01/23/17 19:50; Start 01/14/17 at 21:00 Multi-Ingredient Ointment (Analgesic [place]) 1 moraima PRN BID PRN TP MUSCLE PAIN; Start 01/14/17 at 14:45 Quetiapine Fumarate (SEROquel) 50 mg QHS PO ; Start 01/14/17 at 21:00; Stop 01/15 at 18:05; Status DC Rivastigmine (Exelon) 1 patch DAILY TD Last administered on 01/23/17 08:53; Start 01/15/17 at 09:00 Atorvastatin Calcium (Lipitor) 40 mg QHS PO Last administered on 01/23/17 19: 50; Start 01/14/17 at 21:00 Magnesium Hydroxide (Milk Of Magnesia) 2,400 mg PRN QHS PRN PO CONSTIPATION; Start 01/14/17 at 15:00 Vitamin D (Vitamin D3) 1,000 unit BIDPCLD PO Last administered on 01/23/17 17: 07; Start 01/14/17 at 17:30 Lorazepam (Ativan) 0.5 mg PRN Q8HRS PRN PO ANXIETY / AGITATION; Start 01/14/17 at 14:45 Divalproex Sodium (Depakote Sprinkles) 500 mg BID PO Last administered on 19:50; Start 01/14/17 at 21:00 Olanzapine (Zyprexa Zydis) 5 mg PRN Q2HR PRN PO ANXIETY / AGITATION Last administered on 01/22/17 08:57; Start 01/14/17 at 15:00 Quetiapine Fumarate (SEROquel) 12.5 mg TID PO Last administered on 01/19/17 12 :59; Start 01/15/17 at 21:00; Stop 01/19/17 at 18:00; Status DC Buspirone HCl (Buspar) 10 mg QID PO Last administered on 01/23/17 19:50; Start 01/16/17 at 17:00 Quetiapine Fumarate (SEROquel) 25 mg TID PO Last administered on 01/22/17 13: 30; Start 01/19/17 at 21:00; Stop 01/22/17 at 18:30; Status DC Quetiapine Fumarate (SEROquel) 37.5 mg TID PO Last administered on 01/23/17 19 :50; Start 01/22/17 at 21:00 Active Scripts Active Reported Depakote Sprinkle (Divalproex Sodium) 125 Mg Cap.sprink 500 Mg PO BID EXELON 9.5mg/24hr (Rivastigmine) 1 Each Patch.td24 1 Patch TP DAILY Magnesium Oxide 400 Mg Tablet 400 Mg PO BID Ativan (Lorazepam) 0.5 Mg Tablet 0.5 Mg PO HS Duoneb 0.5-3(2.5) Mg/3 Ml (Albuterol/Ipratropium) 3 Ml Ampul.neb 3 Ml NEB PRN QID PRN Aspir-Low (Aspirin) 81 Mg Tablet.dr 1 Tab PO DAILYWBKFT Vitamin D3 (Cholecalciferol (Vitamin D3)) 1,000 Unit Tablet 1,000 Unit PO BIDPCLD Seroquel (Quetiapine Fumarate) 50 Mg Tablet 50 Mg PO QHS Levothyroxine Sodium 88 Mcg Tablet 88 Mcg PO DAILY06 Atorvastatin Calcium 40 Mg Tablet 40 Mg PO QHS Buspirone Hcl 5 Mg Tablet 10 Mg PO BID94 Do NOT administer with grapefruit juice Analgesic [place] (Methyl Salicylate/Menthol) 29 Gm Oint...g. 1 [place]aima TP PRN BID PRN Milk Of Magnesia (Magnesium Hydroxide) 2,400 Mg/10 Ml Oral.susp 2,400 Mg PO PRN QHS PRN Tylenol (Acetaminophen) 325 Mg Tablet 650 Mg PO PRN Q6HRS PRN Maximum Acetaminophen dose is 4000 mg in 24 hours from all sources for adults. Ativan (Lorazepam) 0.5 Mg Tablet 0.5 Mg PO PRN Q8HRS PRN Escitalopram Oxalate 10 Mg Tablet 10 Mg PO DAILY Clopidogrel (Clopidogrel Bisulfate) 75 Mg Tablet 75 Mg PO DAILY Diagnosis: Problems: (1) Medical clearance for psychiatric admission (2) Dementia in Alzheimer's disease with delusions (3) Dementia in Alzheimer's disease with depression (4) Dementia, vascular, with delusions (5) Dementia, vascular, with depression (6) Dementia, vascular (7) Impulse control disorder (8) Anxiety disorder (9) Dementia with behavioral disturbance ASHA NAJERA MD Jan 23, 2017 20:50
[2017-01-24] MEDS: LEVOTHYROXINE 88 MCG TABLET PO SCH (05:53)
[2017-01-24 07:06] VITALS: BP 124/54
[2017-01-24] MEDS: busPIRone 10 MG TABLET. PO SCH ×4 (09:06→19:44)
[2017-01-24] MEDS: ESCITALOPRAM 10 MG TABLET. PO SCH (09:07)
[2017-01-24] MEDS: MAGNESIUM OXIDE 400 MG TABLET PO SCH ×2 (09:07→19:45)
[2017-01-24] MEDS: QUEtiapine 25 MG TABLET. PO SCH ×3 (09:07→19:46)
[2017-01-24] MEDS: ASPIRIN ENTERIC COATED 81 MG TABLET.DR. PO SCH (09:07)
[2017-01-24] MEDS: CLOPIDOGREL BISULFATE 75 MG TABLET PO SCH (09:07)
[2017-01-24] MEDS: RIVASTIGMINE 9.5MG PATCH. TD SCH (09:10)
[2017-01-24] MEDS: DIVALPROEX 125 MG CAP.SPRINK PO SCH ×2 (09:12→19:44)
[2017-01-24] MEDS: CHOLECALCIFEROL (VITAMIN D3) 1,000 UNIT TABLET PO SCH ×2 (12:30→17:36)
[2017-01-24 16:08] VITALS: BP 125/71
[2017-01-24] MEDS: ATORVASTATIN CALCIUM 20 MG TABLET PO SCH (19:45)
--- NOTE | 2017-01-24 19:53 | PN ---
DATE: 01/23/2017 PSYCHIATRIC PROGRESS NOTE This is late entry of 01/23/2017, covers elements not covered in my initial note. SUBJECTIVE: The patient remains confused, but has not been aggressive. He was having tea for his supper as I met with him and felt he was having beer. REVIEW OF SYSTEMS: No CV, , pulmonary, eye, ENT system symptoms on review. Reliability poor. MENTAL STATUS EXAMINATION: Oriented to himself. Insight, judgment, recent and remote memory, attention, concentration, fund of knowledge poor, consistent with his diagnosis mentioned in my initial note. PLAN: Continue current psychotropics mentioned in my initial note. Adjust further as clinically indicated. MAN Shorty NAJERA MD DR: MILKA/abel JOB#: [id number] / [id number]
--- NOTE | 2017-01-24 20:51 | PDOC ---
Exam [place] Demential Exam: [place] Note: Please also refer to the separate dictated note~for this date of service dictated separately.~Patient seen individually. Discussed the patient with Nursing staff reviewed the chart.~Reviewed interim history and current functioning. Reviewed vital signs,~Labs/ Radiology~and current medications noted below. Continue current treatment with the changes noted in the dictated addendum note Assessment: Vital Signs: Vital Signs Date Time Temp Pulse Resp B/P Pulse Ox O2 Delivery O2 Flow Rate FiO2 01/24/17 16:08 96.9 57 20 125/71 94 01/23/17 07:49 Room Air 01/22/17 15:21 96.0 I&O Intake and Output 01/24/17 07:00 Intake Total 960 ml Balance 960 ml Intake Oral 960 ml # Voids 1 # Bowel Movements 1 Current Medications: Meds: Current Medications Lorazepam (Ativan) 1 mg 1X ONCE PO Last administered on 01/14/17 12:00; Start 01/14/17 at 12:00; Stop 01/14/17 at 12:01; Status DC Acetaminophen (Tylenol) 650 mg PRN Q6HRS PRN PO PAIN / TEMP; Start 01/14/17 at 14:45 Aspirin (Aspirin Enteric Coated) 81 mg DAILYWBKFT PO Last administered on 09:07; Start 01/15/17 at 08:00 Buspirone HCl (Buspar) 10 mg BID94 PO Last administered on 01/16/17 15:56; Start 01/14/17 at 16:00; Stop 01/16/17 at 17:14; Status DC Clopidogrel Bisulfate (Plavix) 75 mg DAILY PO Last administered on 01/24/17 09 :07; Start 01/15/17 at 09:00 Escitalopram Oxalate (Lexapro) 10 mg DAILY PO Last administered on 01/24/17 09 :07; Start 01/15/17 at 09:00 Albuterol/ Ipratropium (Duoneb) 3 ml PRN QID PRN NEB SHORTNESS OF AIR; Start at 14:45 Levothyroxine Sodium (Synthroid) 88 mcg DAILY06 PO Last administered on 05:53; Start 01/15/17 at 06:00 Lorazepam (Ativan) 0.5 mg HS PO Last administered on 01/21/17 19:23; Start 01/14/17 at 21:00; Stop 01/23/17 at 06:58; Status DC Magnesium Oxide (Magnesium Oxide) 400 mg BID PO Last administered on 01/24/17 19:45; Start 01/14/17 at 21:00 Multi-Ingredient Ointment (Analgesic [place]) 1 moraima PRN BID PRN TP MUSCLE PAIN; Start 01/14/17 at 14:45 Quetiapine Fumarate (SEROquel) 50 mg QHS PO ; Start 01/14/17 at 21:00; Stop 01/15 at 18:05; Status DC Rivastigmine (Exelon) 1 patch DAILY TD Last administered on 01/24/17 09:10; Start 01/15/17 at 09:00 Atorvastatin Calcium (Lipitor) 40 mg QHS PO Last administered on 01/24/17 19: 45; Start 01/14/17 at 21:00 Magnesium Hydroxide (Milk Of Magnesia) 2,400 mg PRN QHS PRN PO CONSTIPATION; Start 01/14/17 at 15:00 Vitamin D (Vitamin D3) 1,000 unit BIDPCLD PO Last administered on 01/24/17 17: 36; Start 01/14/17 at 17:30 Lorazepam (Ativan) 0.5 mg PRN Q8HRS PRN PO ANXIETY / AGITATION; Start 01/14/17 at 14:45 Divalproex Sodium (Depakote Sprinkles) 500 mg BID PO Last administered on 19:44; Start 01/14/17 at 21:00 Olanzapine (Zyprexa Zydis) 5 mg PRN Q2HR PRN PO ANXIETY / AGITATION Last administered on 01/22/17 08:57; Start 01/14/17 at 15:00 Quetiapine Fumarate (SEROquel) 12.5 mg TID PO Last administered on 01/19/17 12 :59; Start 01/15/17 at 21:00; Stop 01/19/17 at 18:00; Status DC Buspirone HCl (Buspar) 10 mg QID PO Last administered on 01/24/17 19:44; Start 01/16/17 at 17:00 Quetiapine Fumarate (SEROquel) 25 mg TID PO Last administered on 01/22/17 13: 30; Start 01/19/17 at 21:00; Stop 01/22/17 at 18:30; Status DC Quetiapine Fumarate (SEROquel) 37.5 mg TID PO Last administered on 01/24/17 19 :46; Start 01/22/17 at 21:00 Active Scripts Active Reported Depakote Sprinkle (Divalproex Sodium) 125 Mg Cap.sprink 500 Mg PO BID EXELON 9.5mg/24hr (Rivastigmine) 1 Each Patch.td24 1 Patch TP DAILY Magnesium Oxide 400 Mg Tablet 400 Mg PO BID Ativan (Lorazepam) 0.5 Mg Tablet 0.5 Mg PO HS Duoneb 0.5-3(2.5) Mg/3 Ml (Albuterol/Ipratropium) 3 Ml Ampul.neb 3 Ml NEB PRN QID PRN Aspir-Low (Aspirin) 81 Mg Tablet.dr 1 Tab PO DAILYWBKFT Vitamin D3 (Cholecalciferol (Vitamin D3)) 1,000 Unit Tablet 1,000 Unit PO BIDPCLD Seroquel (Quetiapine Fumarate) 50 Mg Tablet 50 Mg PO QHS Levothyroxine Sodium 88 Mcg Tablet 88 Mcg PO DAILY06 Atorvastatin Calcium 40 Mg Tablet 40 Mg PO QHS Buspirone Hcl 5 Mg Tablet 10 Mg PO BID94 Do NOT administer with grapefruit juice Analgesic [place] (Methyl Salicylate/Menthol) 29 Gm Oint...g. 1 [place] TP PRN BID PRN Milk Of Magnesia (Magnesium Hydroxide) 2,400 Mg/10 Ml Oral.susp 2,400 Mg PO PRN QHS PRN Tylenol (Acetaminophen) 325 Mg Tablet 650 Mg PO PRN Q6HRS PRN Maximum Acetaminophen dose is 4000 mg in 24 hours from all sources for adults. Ativan (Lorazepam) 0.5 Mg Tablet 0.5 Mg PO PRN Q8HRS PRN Escitalopram Oxalate 10 Mg Tablet 10 Mg PO DAILY Clopidogrel (Clopidogrel Bisulfate) 75 Mg Tablet 75 Mg PO DAILY Diagnosis: Problems: (1) Dementia with behavioral disturbance (2) Anxiety disorder (3) Impulse control disorder (4) Dementia, vascular (5) Dementia, vascular, with depression (6) Dementia, vascular, with delusions (7) Dementia in Alzheimer's disease with depression (8) Dementia in Alzheimer's disease with delusions (9) Medical clearance for psychiatric admission ASHA NAJERA MD Jan 24, 2017 20:51
[2017-01-25] MEDS: LEVOTHYROXINE 88 MCG TABLET PO SCH (05:09)
[2017-01-25 05:33] VITALS: BP 132/75
[2017-01-25] MEDS: RIVASTIGMINE 9.5MG PATCH. TD SCH (07:54)
[2017-01-25] MEDS: CLOPIDOGREL BISULFATE 75 MG TABLET PO SCH (07:54)
[2017-01-25] MEDS: MAGNESIUM OXIDE 400 MG TABLET PO SCH ×2 (07:54→19:54)
[2017-01-25] MEDS: busPIRone 10 MG TABLET. PO SCH ×4 (07:54→19:54)
[2017-01-25] MEDS: QUEtiapine 25 MG TABLET. PO SCH (07:55)
[2017-01-25] MEDS: DIVALPROEX 125 MG CAP.SPRINK PO SCH ×2 (07:55→19:55)
[2017-01-25] MEDS: ESCITALOPRAM 10 MG TABLET. PO SCH (07:55)
[2017-01-25] MEDS: ASPIRIN ENTERIC COATED 81 MG TABLET.DR. PO SCH (07:55)
[2017-01-25] MEDS: QUEtiapine 50 MG TABLET. PO SCH ×2 (12:50→19:54)
[2017-01-25] MEDS: CHOLECALCIFEROL (VITAMIN D3) 1,000 UNIT TABLET PO SCH ×3 (12:50→19:54)
[2017-01-25 15:28] VITALS: BP 130/84
[2017-01-25] MEDS: ATORVASTATIN CALCIUM 20 MG TABLET PO SCH (19:54)
--- NOTE | 2017-01-25 20:56 | PDOC ---
Exam [place] Demential Exam: [place] Note: Please also refer to the separate dictated note~for this date of service dictated separately.~Patient seen individually. Discussed the patient with Nursing staff reviewed the chart.~Reviewed interim history and current functioning. Reviewed vital signs,~Labs/ Radiology~and current medications noted below. Continue current treatment with the changes noted in the dictated addendum note Assessment: Vital Signs: Vital Signs Date Time Temp Pulse Resp B/P Pulse Ox O2 Delivery O2 Flow Rate FiO2 01/25/17 15:28 97.3 54 20 130/84 94 01/23/17 07:49 Room Air 01/22/17 15:21 96.0 I&O Intake and Output 01/25/17 07:00 Intake Total 1200 ml Balance 1200 ml Intake Oral 1200 ml Current Medications: Meds: Current Medications Lorazepam (Ativan) 1 mg 1X ONCE PO Last administered on 01/14/17 12:00; Start 01/14/17 at 12:00; Stop 01/14/17 at 12:01; Status DC Acetaminophen (Tylenol) 650 mg PRN Q6HRS PRN PO PAIN / TEMP; Start 01/14/17 at 14:45 Aspirin (Aspirin Enteric Coated) 81 mg DAILYWBKFT PO Last administered on 07:55; Start 01/15/17 at 08:00 Buspirone HCl (Buspar) 10 mg BID94 PO Last administered on 01/16/17 15:56; Start 01/14/17 at 16:00; Stop 01/16/17 at 17:14; Status DC Clopidogrel Bisulfate (Plavix) 75 mg DAILY PO Last administered on 01/25/17 07 :54; Start 01/15/17 at 09:00 Escitalopram Oxalate (Lexapro) 10 mg DAILY PO Last administered on 01/25/17 07 :55; Start 01/15/17 at 09:00 Albuterol/ Ipratropium (Duoneb) 3 ml PRN QID PRN NEB SHORTNESS OF AIR; Start at 14:45 Levothyroxine Sodium (Synthroid) 88 mcg DAILY06 PO Last administered on 05:09; Start 01/15/17 at 06:00 Lorazepam (Ativan) 0.5 mg HS PO Last administered on 01/21/17 19:23; Start 01/14/17 at 21:00; Stop 01/23/17 at 06:58; Status DC Magnesium Oxide (Magnesium Oxide) 400 mg BID PO Last administered on 01/25/17 19:54; Start 01/14/17 at 21:00 Multi-Ingredient Ointment (Analgesic [place]) 1 moraima PRN BID PRN TP MUSCLE PAIN; Start 01/14/17 at 14:45 Quetiapine Fumarate (SEROquel) 50 mg QHS PO ; Start 01/14/17 at 21:00; Stop 01/15 at 18:05; Status DC Rivastigmine (Exelon) 1 patch DAILY TD Last administered on 01/25/17 07:54; Start 01/15/17 at 09:00 Atorvastatin Calcium (Lipitor) 40 mg QHS PO Last administered on 01/25/17 19: 54; Start 01/14/17 at 21:00 Magnesium Hydroxide (Milk Of Magnesia) 2,400 mg PRN QHS PRN PO CONSTIPATION; Start 01/14/17 at 15:00 Vitamin D (Vitamin D3) 1,000 unit BIDPCLD PO Last administered on 01/25/17 19: 54; Start 01/14/17 at 17:30 Lorazepam (Ativan) 0.5 mg PRN Q8HRS PRN PO ANXIETY / AGITATION; Start 01/14/17 at 14:45 Divalproex Sodium (Depakote Sprinkles) 500 mg BID PO Last administered on 19:55; Start 01/14/17 at 21:00 Olanzapine (Zyprexa Zydis) 5 mg PRN Q2HR PRN PO ANXIETY / AGITATION Last administered on 01/22/17 08:57; Start 01/14/17 at 15:00 Quetiapine Fumarate (SEROquel) 12.5 mg TID PO Last administered on 01/19/17 12 :59; Start 01/15/17 at 21:00; Stop 01/19/17 at 18:00; Status DC Buspirone HCl (Buspar) 10 mg QID PO Last administered on 01/25/17 19:54; Start 01/16/17 at 17:00 Quetiapine Fumarate (SEROquel) 25 mg TID PO Last administered on 01/22/17 13: 30; Start 01/19/17 at 21:00; Stop 01/22/17 at 18:30; Status DC Quetiapine Fumarate (SEROquel) 37.5 mg TID PO Last administered on 01/25/17 07 :55; Start 01/22/17 at 21:00; Stop 01/25/17 at 10:25; Status DC Quetiapine Fumarate (SEROquel) 50 mg TID PO Last administered on 01/25/17 19: 54; Start 01/25/17 at 14:00 Active Scripts Active Reported Depakote Sprinkle (Divalproex Sodium) 125 Mg Cap.sprink 500 Mg PO BID EXELON 9.5mg/24hr (Rivastigmine) 1 Each Patch.td24 1 Patch TP DAILY Magnesium Oxide 400 Mg Tablet 400 Mg PO BID Ativan (Lorazepam) 0.5 Mg Tablet 0.5 Mg PO HS Duoneb 0.5-3(2.5) Mg/3 Ml (Albuterol/Ipratropium) 3 Ml Ampul.neb 3 Ml NEB PRN QID PRN Aspir-Low (Aspirin) 81 Mg Tablet.dr 1 Tab PO DAILYWBKFT Vitamin D3 (Cholecalciferol (Vitamin D3)) 1,000 Unit Tablet 1,000 Unit PO BIDPCLD Seroquel (Quetiapine Fumarate) 50 Mg Tablet 50 Mg PO QHS Levothyroxine Sodium 88 Mcg Tablet 88 Mcg PO DAILY06 Atorvastatin Calcium 40 Mg Tablet 40 Mg PO QHS Buspirone Hcl 5 Mg Tablet 10 Mg PO BID94 Do NOT administer with grapefruit juice Analgesic [place] (Methyl Salicylate/Menthol) 29 Gm Oint...g. 1 [place] TP PRN BID PRN Milk Of Magnesia (Magnesium Hydroxide) 2,400 Mg/10 Ml Oral.susp 2,400 Mg PO PRN QHS PRN Tylenol (Acetaminophen) 325 Mg Tablet 650 Mg PO PRN Q6HRS PRN Maximum Acetaminophen dose is 4000 mg in 24 hours from all sources for adults. Ativan (Lorazepam) 0.5 Mg Tablet 0.5 Mg PO PRN Q8HRS PRN Escitalopram Oxalate 10 Mg Tablet 10 Mg PO DAILY Clopidogrel (Clopidogrel Bisulfate) 75 Mg Tablet 75 Mg PO DAILY Diagnosis: Problems: (1) Dementia with behavioral disturbance (2) Anxiety disorder (3) Impulse control disorder (4) Dementia, vascular (5) Dementia, vascular, with depression (6) Dementia, vascular, with delusions (7) Dementia in Alzheimer's disease with depression (8) Dementia in Alzheimer's disease with delusions (9) Medical clearance for psychiatric admission ASHA NAJERA MD Jan 25, 2017 20:56
[2017-01-26] MEDS: LEVOTHYROXINE 88 MCG TABLET PO SCH (06:30)
[2017-01-26 06:36] VITALS: BP 103/55
[2017-01-26] MEDS: busPIRone 10 MG TABLET. PO SCH ×4 (08:44→19:33)
[2017-01-26] MEDS: CLOPIDOGREL BISULFATE 75 MG TABLET PO SCH (08:44)
[2017-01-26] MEDS: RIVASTIGMINE 9.5MG PATCH. TD SCH (08:44)
[2017-01-26] MEDS: MAGNESIUM OXIDE 400 MG TABLET PO SCH ×2 (08:44→19:33)
[2017-01-26] MEDS: QUEtiapine 50 MG TABLET. PO SCH ×3 (08:45→19:33)
[2017-01-26] MEDS: ESCITALOPRAM 10 MG TABLET. PO SCH (08:45)
[2017-01-26] MEDS: ASPIRIN ENTERIC COATED 81 MG TABLET.DR. PO SCH (08:46)
[2017-01-26] MEDS: DIVALPROEX 125 MG CAP.SPRINK PO SCH ×2 (08:46→19:33)
[2017-01-26 15:19] VITALS: BP 122/59
[2017-01-26] MEDS: CHOLECALCIFEROL (VITAMIN D3) 1,000 UNIT TABLET PO SCH (18:21)
[2017-01-26] MEDS: ATORVASTATIN CALCIUM 20 MG TABLET PO SCH (19:33)
--- NOTE | 2017-01-26 20:04 | PN ---
DATE: 01/24/2017 PSYCHIATRIC PROGRESS NOTE This is late entry of 01/24/2017, covers elements not covered in my initial note. SUBJECTIVE: Per nursing report, the patient remains confused, little anxious, little paranoid at times, but not aggressive, seems to have a blunted affect. REVIEW OF SYSTEMS: No CV, , pulmonary, eye, ENT system symptoms on review. MENTAL STATUS EXAMINATION: Oriented to himself. Insight, judgment, recent and remote memory, attention, concentration, fund of knowledge poor, consistent with his diagnosis, not very verbal, often responses monosyllabic. LABORATORY DATA: Reviewed. IMPRESSION: Unchanged from initial note. PLAN: Continue psychotropics mentioned in my initial note for now. MAN Shorty NAJERA MD DR: MILKA/abel JOB#: [id number] / [id number]
--- NOTE | 2017-01-26 20:08 | PN ---
DATE: 01/25/2017 PSYCHIATRIC PROGRESS NOTE This is late entry of 01/25/2017, covers elements not covered in my initial note. SUBJECTIVE: Per nursing report, the patient remains withdrawn, a little paranoid at times. We had a lengthy discussion at the treatment team meeting. skilled nursing prefers no PRNs but given the patient's history, repeated hospitalizations, the fact that he is on adequate antipsychotics for now and even though we have not had to use any PRNs here for the last 3-4 days, I feel the p.r.n. Zyprexa should be continued back at the long-term along with Ativan p.r.n. In case he has some trouble adjusting to the change in placement then certainly these can be discontinued at a later date. REVIEW OF SYSTEMS: No CV, , pulmonary, eye, ENT system symptoms on review. Reliability poor. MENTAL STATUS EXAMINATION: Oriented to himself. Insight, judgment, recent and remote memory, attention, concentration, fund of knowledge poor, consistent with his diagnosis as mentioned in my initial note. PLAN: Continue current psychotropics and notation for PRNs noted above. MAN Shorty NAJERA MD DR: MILKA/abel JOB#: [id number] / [id number]
--- NOTE | 2017-01-26 20:50 | PDOC ---
Exam [place] Demential Exam: [place] Note: Please also refer to the separate dictated note~for this date of service dictated separately.~Patient seen individually. Discussed the patient with Nursing staff reviewed the chart.~Reviewed interim history and current functioning. Reviewed vital signs,~Labs/ Radiology~and current medications noted below. Continue current treatment with the changes noted in the dictated addendum note Assessment: Vital Signs: Vital Signs Date Time Temp Pulse Resp B/P Pulse Ox O2 Delivery O2 Flow Rate FiO2 01/26/17 15:19 98.4 62 20 122/59 95 01/23/17 07:49 Room Air 01/22/17 15:21 96.0 I&O Intake and Output 01/26/17 07:00 Intake Total 720 ml Balance 720 ml Intake Oral 720 ml # Voids 2 Current Medications: Meds: Current Medications Lorazepam (Ativan) 1 mg 1X ONCE PO Last administered on 01/14/17 12:00; Start 01/14/17 at 12:00; Stop 01/14/17 at 12:01; Status DC Acetaminophen (Tylenol) 650 mg PRN Q6HRS PRN PO PAIN / TEMP; Start 01/14/17 at 14:45 Aspirin (Aspirin Enteric Coated) 81 mg DAILYWBKFT PO Last administered on 08:46; Start 01/15/17 at 08:00 Buspirone HCl (Buspar) 10 mg BID94 PO Last administered on 01/16/17 15:56; Start 01/14/17 at 16:00; Stop 01/16/17 at 17:14; Status DC Clopidogrel Bisulfate (Plavix) 75 mg DAILY PO Last administered on 01/26/17 08 :44; Start 01/15/17 at 09:00 Escitalopram Oxalate (Lexapro) 10 mg DAILY PO Last administered on 01/26/17 08 :45; Start 01/15/17 at 09:00 Albuterol/ Ipratropium (Duoneb) 3 ml PRN QID PRN NEB SHORTNESS OF AIR; Start at 14:45 Levothyroxine Sodium (Synthroid) 88 mcg DAILY06 PO Last administered on 06:30; Start 01/15/17 at 06:00 Lorazepam (Ativan) 0.5 mg HS PO Last administered on 01/21/17 19:23; Start 01/14/17 at 21:00; Stop 01/23/17 at 06:58; Status DC Magnesium Oxide (Magnesium Oxide) 400 mg BID PO Last administered on 01/26/17 19:33; Start 01/14/17 at 21:00 Multi-Ingredient Ointment (Analgesic [place]) 1 moraima PRN BID PRN TP MUSCLE PAIN; Start 01/14/17 at 14:45 Quetiapine Fumarate (SEROquel) 50 mg QHS PO ; Start 01/14/17 at 21:00; Stop 01/15 at 18:05; Status DC Rivastigmine (Exelon) 1 patch DAILY TD Last administered on 01/26/17 08:44; Start 01/15/17 at 09:00 Atorvastatin Calcium (Lipitor) 40 mg QHS PO Last administered on 01/26/17 19: 33; Start 01/14/17 at 21:00 Magnesium Hydroxide (Milk Of Magnesia) 2,400 mg PRN QHS PRN PO CONSTIPATION; Start 01/14/17 at 15:00 Vitamin D (Vitamin D3) 1,000 unit BIDPCLD PO Last administered on 01/26/17 18: 21; Start 01/14/17 at 17:30 Lorazepam (Ativan) 0.5 mg PRN Q8HRS PRN PO ANXIETY / AGITATION; Start 01/14/17 at 14:45 Divalproex Sodium (Depakote Sprinkles) 500 mg BID PO Last administered on 19:33; Start 01/14/17 at 21:00 Olanzapine (Zyprexa Zydis) 5 mg PRN Q2HR PRN PO ANXIETY / AGITATION Last administered on 01/22/17 08:57; Start 01/14/17 at 15:00 Quetiapine Fumarate (SEROquel) 12.5 mg TID PO Last administered on 01/19/17 12 :59; Start 01/15/17 at 21:00; Stop 01/19/17 at 18:00; Status DC Buspirone HCl (Buspar) 10 mg QID PO Last administered on 01/26/17 19:33; Start 01/16/17 at 17:00 Quetiapine Fumarate (SEROquel) 25 mg TID PO Last administered on 01/22/17 13: 30; Start 01/19/17 at 21:00; Stop 01/22/17 at 18:30; Status DC Quetiapine Fumarate (SEROquel) 37.5 mg TID PO Last administered on 01/25/17 07 :55; Start 01/22/17 at 21:00; Stop 01/25/17 at 10:25; Status DC Quetiapine Fumarate (SEROquel) 50 mg TID PO Last administered on 01/26/17 19: 33; Start 01/25/17 at 14:00 Active Scripts Active Reported Depakote Sprinkle (Divalproex Sodium) 125 Mg Cap.sprink 500 Mg PO BID EXELON 9.5mg/24hr (Rivastigmine) 1 Each Patch.td24 1 Patch TP DAILY Magnesium Oxide 400 Mg Tablet 400 Mg PO BID Ativan (Lorazepam) 0.5 Mg Tablet 0.5 Mg PO HS Duoneb 0.5-3(2.5) Mg/3 Ml (Albuterol/Ipratropium) 3 Ml Ampul.neb 3 Ml NEB PRN QID PRN Aspir-Low (Aspirin) 81 Mg Tablet.dr 1 Tab PO DAILYWBKFT Vitamin D3 (Cholecalciferol (Vitamin D3)) 1,000 Unit Tablet 1,000 Unit PO BIDPCLD Seroquel (Quetiapine Fumarate) 50 Mg Tablet 50 Mg PO QHS Levothyroxine Sodium 88 Mcg Tablet 88 Mcg PO DAILY06 Atorvastatin Calcium 40 Mg Tablet 40 Mg PO QHS Buspirone Hcl 5 Mg Tablet 10 Mg PO BID94 Do NOT administer with grapefruit juice Analgesic [place] (Methyl Salicylate/Menthol) 29 Gm Oint...g. 1 [place] TP PRN BID PRN Milk Of Magnesia (Magnesium Hydroxide) 2,400 Mg/10 Ml Oral.susp 2,400 Mg PO PRN QHS PRN Tylenol (Acetaminophen) 325 Mg Tablet 650 Mg PO PRN Q6HRS PRN Maximum Acetaminophen dose is 4000 mg in 24 hours from all sources for adults. Ativan (Lorazepam) 0.5 Mg Tablet 0.5 Mg PO PRN Q8HRS PRN Escitalopram Oxalate 10 Mg Tablet 10 Mg PO DAILY Clopidogrel (Clopidogrel Bisulfate) 75 Mg Tablet 75 Mg PO DAILY Diagnosis: Problems: (1) Dementia with behavioral disturbance (2) Anxiety disorder (3) Impulse control disorder (4) Dementia, vascular (5) Dementia, vascular, with depression (6) Dementia, vascular, with delusions (7) Dementia in Alzheimer's disease with depression (8) Dementia in Alzheimer's disease with delusions (9) Medical clearance for psychiatric admission ASHA NAJERA MD Jan 26, 2017 20:50
[2017-01-27] MEDS: LEVOTHYROXINE 88 MCG TABLET PO SCH (05:50)
[2017-01-27 06:21] VITALS: BP 144/57
[2017-01-27] MEDS: CLOPIDOGREL BISULFATE 75 MG TABLET PO SCH (08:54)
[2017-01-27] MEDS: ESCITALOPRAM 10 MG TABLET. PO SCH (08:54)
[2017-01-27] MEDS: QUEtiapine 50 MG TABLET. PO SCH ×3 (08:54→19:35)
[2017-01-27] MEDS: ASPIRIN ENTERIC COATED 81 MG TABLET.DR. PO SCH (08:55)
[2017-01-27] MEDS: DIVALPROEX 125 MG CAP.SPRINK PO SCH ×2 (08:55→19:35)
[2017-01-27] MEDS: busPIRone 10 MG TABLET. PO SCH ×4 (08:55→19:35)
[2017-01-27] MEDS: MAGNESIUM OXIDE 400 MG TABLET PO SCH ×2 (08:55→19:35)
[2017-01-27] MEDS: RIVASTIGMINE 9.5MG PATCH. TD SCH (08:56)
[2017-01-27] MEDS: CHOLECALCIFEROL (VITAMIN D3) 1,000 UNIT TABLET PO SCH ×2 (08:56→17:08)
[2017-01-27 16:04] VITALS: BP 128/74
[2017-01-27] MEDS: ATORVASTATIN CALCIUM 20 MG TABLET PO SCH (19:35)
--- NOTE | 2017-01-27 21:00 | PDOC ---
Exam [place] [facility]emential Exam: [place] Note: Please also refer to the separate dictated note~for this date of service dictated separately.~Patient seen individually. Discussed the patient with Nursing staff reviewed the chart.~Reviewed interim history and current functioning. Reviewed vital signs,~Labs/ Radiology~and current medications noted below. Continue current treatment with the changes noted in the dictated addendum note Assessment: Vital Signs: Vital Signs Date Time Temp Pulse Resp B/P Pulse Ox O2 Delivery O2 Flow Rate FiO2 01/27/17 16:04 97.0 52 16 128/74 94 01/27/17 06:21 Room Air 01/22/17 15:21 96.0 I&O Intake and Output 01/27/17 07:00 Intake Total 1200 ml Balance 1200 ml Intake Oral 1200 ml Current Medications: Meds: Current Medications Lorazepam (Ativan) 1 mg 1X ONCE PO Last administered on 01/14/17 12:00; Start 01/14/17 at 12:00; Stop 01/14/17 at 12:01; Status DC Acetaminophen (Tylenol) 650 mg PRN Q6HRS PRN PO PAIN / TEMP; Start 01/14/17 at 14:45 Aspirin (Aspirin Enteric Coated) 81 mg DAILYWBKFT PO Last administered on 08:55; Start 01/15/17 at 08:00 Buspirone HCl (Buspar) 10 mg BID94 PO Last administered on 01/16/17 15:56; Start 01/14/17 at 16:00; Stop 01/16/17 at 17:14; Status DC Clopidogrel Bisulfate (Plavix) 75 mg DAILY PO Last administered on 01/27/17 08 :54; Start 01/15/17 at 09:00 Escitalopram Oxalate (Lexapro) 10 mg DAILY PO Last administered on 01/27/17 08 :54; Start 01/15/17 at 09:00 Albuterol/ Ipratropium (Duoneb) 3 ml PRN QID PRN NEB SHORTNESS OF AIR; Start at 14:45 Levothyroxine Sodium (Synthroid) 88 mcg DAILY06 PO Last administered on 05:50; Start 01/15/17 at 06:00 Lorazepam (Ativan) 0.5 mg HS PO Last administered on 01/21/17 19:23; Start 01/14/17 at 21:00; Stop 01/23/17 at 06:58; Status DC Magnesium Oxide (Magnesium Oxide) 400 mg BID PO Last administered on 01/27/17 19:35; Start 01/14/17 at 21:00 Multi-Ingredient Ointment (Analgesic [place]) 1 moraima PRN BID PRN TP MUSCLE PAIN; Start 01/14/17 at 14:45 Quetiapine Fumarate (SEROquel) 50 mg QHS PO ; Start 01/14/17 at 21:00; Stop 01/15 at 18:05; Status DC Rivastigmine (Exelon) 1 patch DAILY TD Last administered on 01/27/17 08:56; Start 01/15/17 at 09:00 Atorvastatin Calcium (Lipitor) 40 mg QHS PO Last administered on 01/27/17 19: 35; Start 01/14/17 at 21:00 Magnesium Hydroxide (Milk Of Magnesia) 2,400 mg PRN QHS PRN PO CONSTIPATION; Start 01/14/17 at 15:00 Vitamin D (Vitamin D3) 1,000 unit BIDPCLD PO Last administered on 01/27/17 17: 08; Start 01/14/17 at 17:30 Lorazepam (Ativan) 0.5 mg PRN Q8HRS PRN PO ANXIETY / AGITATION; Start 01/14/17 at 14:45 Divalproex Sodium (Depakote Sprinkles) 500 mg BID PO Last administered on 19:35; Start 01/14/17 at 21:00 Olanzapine (Zyprexa Zydis) 5 mg PRN Q2HR PRN PO ANXIETY / AGITATION Last administered on 01/22/17 08:57; Start 01/14/17 at 15:00 Quetiapine Fumarate (SEROquel) 12.5 mg TID PO Last administered on 01/19/17 12 :59; Start 01/15/17 at 21:00; Stop 01/19/17 at 18:00; Status DC Buspirone HCl (Buspar) 10 mg QID PO Last administered on 01/27/17 19:35; Start 01/16/17 at 17:00 Quetiapine Fumarate (SEROquel) 25 mg TID PO Last administered on 01/22/17 13: 30; Start 01/19/17 at 21:00; Stop 01/22/17 at 18:30; Status DC Quetiapine Fumarate (SEROquel) 37.5 mg TID PO Last administered on 01/25/17 07 :55; Start 01/22/17 at 21:00; Stop 01/25/17 at 10:25; Status DC Quetiapine Fumarate (SEROquel) 50 mg TID PO Last administered on 01/27/17 19: 35; Start 01/25/17 at 14:00 Active Scripts Active Reported Depakote Sprinkle (Divalproex Sodium) 125 Mg Cap.sprink 500 Mg PO BID EXELON 9.5mg/24hr (Rivastigmine) 1 Each Patch.td24 1 Patch TP DAILY Magnesium Oxide 400 Mg Tablet 400 Mg PO BID Ativan (Lorazepam) 0.5 Mg Tablet 0.5 Mg PO HS Duoneb 0.5-3(2.5) Mg/3 Ml (Albuterol/Ipratropium) 3 Ml Ampul.neb 3 Ml NEB PRN QID PRN Aspir-Low (Aspirin) 81 Mg Tablet.dr 1 Tab PO DAILYWBKFT Vitamin D3 (Cholecalciferol (Vitamin D3)) 1,000 Unit Tablet 1,000 Unit PO BIDPCLD Seroquel (Quetiapine Fumarate) 50 Mg Tablet 50 Mg PO QHS Levothyroxine Sodium 88 Mcg Tablet 88 Mcg PO DAILY06 Atorvastatin Calcium 40 Mg Tablet 40 Mg PO QHS Buspirone Hcl 5 Mg Tablet 10 Mg PO BID94 Do NOT administer with grapefruit juice Analgesic [place] (Methyl Salicylate/Menthol) 29 Gm Oint...g. 1 [place] TP PRN BID PRN Milk Of Magnesia (Magnesium Hydroxide) 2,400 Mg/10 Ml Oral.susp 2,400 Mg PO PRN QHS PRN Tylenol (Acetaminophen) 325 Mg Tablet 650 Mg PO PRN Q6HRS PRN Maximum Acetaminophen dose is 4000 mg in 24 hours from all sources for adults. Ativan (Lorazepam) 0.5 Mg Tablet 0.5 Mg PO PRN Q8HRS PRN Escitalopram Oxalate 10 Mg Tablet 10 Mg PO DAILY Clopidogrel (Clopidogrel Bisulfate) 75 Mg Tablet 75 Mg PO DAILY Diagnosis: Problems: (1) Dementia with behavioral disturbance (2) Anxiety disorder (3) Impulse control disorder (4) Dementia, vascular (5) Dementia, vascular, with depression (6) Dementia, vascular, with delusions (7) Dementia in Alzheimer's disease with depression (8) Dementia in Alzheimer's disease with delusions (9) Medical clearance for psychiatric admission ASHA NAJERA MD Jan 27, 2017 21:00
[2017-01-28] MEDS: LEVOTHYROXINE 88 MCG TABLET PO SCH (06:32)
[2017-01-28 06:52] VITALS: BP 154/46
[2017-01-28 08:15] LABS: BASO % 1 % (0-3); EOS # 0.1 x10^3/uL (0.0-0.7); EOS % 2 % (0-3); HEMATOCRIT 44.3 % (39.0-53.0); LYMPH # 1.5 x10^3/uL (1.0-4.8); LYMPH % 33 % (24-48); MEAN CORPUSCULAR HEMOGLOBIN 35 pg (25-35); MEAN CORPUSCULAR HGB CONC 34 g/dL (31-37); MEAN CORPUSCULAR VOLUME 103 fL (79-100); MONO # 0.5 x10^3/uL (0.0-1.1); MONO % 12 % (0-9); NEUT # 2.3 x10^3uL (1.8-7.7); NEUT % 52 % (31-73); PLATELET COUNT 121 x10^3/uL (140-400); RED CELL DISTRIBUTION WIDTH 13.6 % (11.5-14.5); WHITE BLOOD COUNT 4.5 x10^3/uL (4.0-11.0)
[2017-01-28 08:19] LABS: ALBUMIN 3.5 g/dL (3.4-5.0); ALBUMIN/GLOBULIN RATIO 0.8 (1.0-1.7); ALK PHOS 64 U/L (46-116); ALT (SGPT) 36 U/L (16-63); ANION GAP 5 (6-14); AST (SGOT) 24 U/L (15-37); BLOOD UREA NITROGEN 23 mg/dL (8-26); BUN/CREATININE RATIO 21 (6-20); CALCIUM 8.9 mg/dL (8.5-10.1); CARBON DIOXIDE 30 mmol/L (21-32); CHLORIDE 107 mmol/L (98-107); CREATININE 1.1 mg/dL (0.7-1.3); GLUCOSE 137 mg/dL (70-99); MAGNESIUM 2.1 mg/dL (1.8-2.4); POTASSIUM 5.1 mmol/L (3.5-5.1); SODIUM 142 mmol/L (136-145); TOTAL BILIRUBIN 0.5 mg/dL (0.2-1.0); TOTAL PROTEIN 7.9 g/dL (6.4-8.2)
[2017-01-28 08:23] LABS: VAL ACID 62 mcg/mL (50-100)
--- NOTE | 2017-01-28 08:34 | PN ---
DATE: 01/26/2017 PSYCHIATRIC PROGRESS NOTE This is a late entry of 01/26/2017 covers elements not covered in my initial note. SUBJECTIVE: Per nursing report, the patient remains confused, but otherwise pleasant, irritable at times with staff grabbed arm of a nursing staff at one point, but let go quickly. Takes his medications crushed. REVIEW OF SYSTEMS: No CV, , pulmonary, eye, ENT system symptoms on review. Reliability poor. MENTAL STATUS EXAM: Oriented to himself. Pleasant smiling as I met with him, oblivious of his surroundings. Insight, judgment, recent and remote memory, attention, concentration, fund of knowledge poor, consistent with his diagnosis mentioned in my initial note. PLAN: Continue psychotropics mentioned in my initial note. Adjust further as clinically indicated. MAN Shorty NAJERA MD DR: MILKA/abel JOB#: [id number] / [id number]
--- NOTE | 2017-01-28 08:57 | PN ---
DATE: 01/27/2017 This late entry for 01/27/2017 covers elements not covered in my initial note. SUBJECTIVE: Per nursing report, the patient remains confused, smiling, seemed to make often remark at the nursing staff "I am going to shoot you" and right after that he was smiling, pleasant, quite oblivious of what he is saying or doing or where he is. REVIEW OF SYSTEMS: No CV, , pulmonary, eye, ENT system symptoms on review. MENTAL STATUS EXAM: Oriented to himself. Insight, judgment, recent, remote memory, attention, concentration, fund of knowledge poor, consistent with his diagnosis mentioned in my initial note. PLAN: No change in psychotropics mentioned in my initial note. Adjust as indicated. MAN Shorty NAJERA MD DR: MILKA/abel JOB#: [id number] / [id number]
[2017-01-28] MEDS: busPIRone 10 MG TABLET. PO SCH ×4 (09:40→19:37)
[2017-01-28] MEDS: ASPIRIN ENTERIC COATED 81 MG TABLET.DR. PO SCH (09:40)
[2017-01-28] MEDS: ESCITALOPRAM 10 MG TABLET. PO SCH (09:41)
[2017-01-28] MEDS: QUEtiapine 50 MG TABLET. PO SCH ×3 (09:41→19:37)
[2017-01-28] MEDS: MAGNESIUM OXIDE 400 MG TABLET PO SCH ×2 (09:41→19:38)
[2017-01-28] MEDS: DIVALPROEX 125 MG CAP.SPRINK PO SCH ×2 (09:41→19:37)
[2017-01-28] MEDS: RIVASTIGMINE 9.5MG PATCH. TD SCH (09:41)
[2017-01-28] MEDS: CLOPIDOGREL BISULFATE 75 MG TABLET PO SCH (09:41)
[2017-01-28] MEDS: CHOLECALCIFEROL (VITAMIN D3) 1,000 UNIT TABLET PO SCH ×2 (13:15→16:53)
[2017-01-28 16:57] VITALS: BP 129/69
[2017-01-28] MEDS: ATORVASTATIN CALCIUM 20 MG TABLET PO SCH (19:37)
--- NOTE | 2017-01-28 20:50 | PDOC ---
Exam [place] Demential Exam: [place] Note: Please also refer to the separate dictated note~for this date of service dictated separately.~Patient seen individually. Discussed the patient with Nursing staff reviewed the chart.~Reviewed interim history and current functioning. Reviewed vital signs,~Labs/ Radiology~and current medications noted below. Continue current treatment with the changes noted in the dictated addendum note Assessment: Vital Signs: Vital Signs Date Time Temp Pulse Resp B/P Pulse Ox O2 Delivery O2 Flow Rate FiO2 01/28/17 16:57 96.8 46 16 129/69 94 01/27/17 06:21 Room Air 01/22/17 15:21 96.0 I&O Intake and Output 01/28/17 07:00 Intake Total 720 ml Balance 720 ml Intake Oral 720 ml # Bowel Movements 1 Labs: Laboratory Tests Test 01/28/17 07:34 White Blood Count 4.5x10^3/uL (4.0-11.0) Red Blood Count 4.30x10^6/uL (4.30-5.70) Hemoglobin 15.0g/dL (13.0-17.5) Hematocrit 44.3% (39.0-53.0) Mean Corpuscular Volume 103fL (79-100) H Mean Corpuscular Hemoglobin 35pg (25-35) Mean Corpuscular Hemoglobin Concent 34g/dL (31-37) Red Cell Distribution Width 13.6% (11.5-14.5) Platelet Count 121x10^3/uL (140-400) L Neutrophils (%) (Auto) 52% (31-73) Lymphocytes (%) (Auto) 33% (24-48) Monocytes (%) (Auto) 12% (0-9) H Eosinophils (%) (Auto) 2% (0-3) Basophils (%) (Auto) 1% (0-3) Neutrophils # (Auto) 2.3x10^3uL (1.8-7.7) Lymphocytes # (Auto) 1.5x10^3/uL (1.0-4.8) Monocytes # (Auto) 0.5x10^3/uL (0.0-1.1) Eosinophils # (Auto) 0.1x10^3/uL (0.0-0.7) Basophils # (Auto) 0.0x10^3/uL (0.0-0.2) Sodium Level 142mmol/L (136-145) Potassium Level 5.1mmol/L (3.5-5.1) Chloride Level 107mmol/L (98-107) Carbon Dioxide Level 30mmol/L (21-32) Anion Gap 5 (6-14) L Blood Urea Nitrogen 23mg/dL (8-26) Creatinine 1.1mg/dL (0.7-1.3) Estimated GFR (Cockcroft-Gault) 66.0 BUN/Creatinine Ratio 21 (6-20) H Glucose Level 137mg/dL (70-99) H Calcium Level 8.9mg/dL (8.5-10.1) Magnesium Level 2.1mg/dL (1.8-2.4) Total Bilirubin 0.5mg/dL (0.2-1.0) Aspartate Amino Transferase (AST) 24U/L (15-37) Alanine Aminotransferase (ALT) 36U/L (16-63) Alkaline Phosphatase 64U/L (46-116) Total Protein 7.9g/dL (6.4-8.2) Albumin 3.5g/dL (3.4-5.0) Albumin/Globulin Ratio 0.8 (1.0-1.7) L Valproic Acid Level 62mcg/mL (50-100) Valproic Acid Last Dose Date 01/27/2017 Valproic Acid Last Dose Time 2100 Current Medications: Meds: Current Medications Lorazepam (Ativan) 1 mg 1X ONCE PO Last administered on 01/14/17 12:00; Start 01/14/17 at 12:00; Stop 01/14/17 at 12:01; Status DC Acetaminophen (Tylenol) 650 mg PRN Q6HRS PRN PO PAIN / TEMP; Start 01/14/17 at 14:45 Aspirin (Aspirin Enteric Coated) 81 mg DAILYWBKFT PO Last administered on 09:40; Start 01/15/17 at 08:00 Buspirone HCl (Buspar) 10 mg BID94 PO Last administered on 01/16/17 15:56; Start 01/14/17 at 16:00; Stop 01/16/17 at 17:14; Status DC Clopidogrel Bisulfate (Plavix) 75 mg DAILY PO Last administered on 01/28/17 09 :41; Start 01/15/17 at 09:00 Escitalopram Oxalate (Lexapro) 10 mg DAILY PO Last administered on 01/28/17 09 :41; Start 01/15/17 at 09:00 Albuterol/ Ipratropium (Duoneb) 3 ml PRN QID PRN NEB SHORTNESS OF AIR; Start at 14:45 Levothyroxine Sodium (Synthroid) 88 mcg DAILY06 PO Last administered on 06:32; Start 01/15/17 at 06:00 Lorazepam (Ativan) 0.5 mg HS PO Last administered on 01/21/17 19:23; Start 01/14/17 at 21:00; Stop 01/23/17 at 06:58; Status DC Magnesium Oxide (Magnesium Oxide) 400 mg BID PO Last administered on 01/28/17 19:38; Start 01/14/17 at 21:00 Multi-Ingredient Ointment (Analgesic [place]) 1 moraima PRN BID PRN TP MUSCLE PAIN; Start 01/14/17 at 14:45 Quetiapine Fumarate (SEROquel) 50 mg QHS PO ; Start 01/14/17 at 21:00; Stop 01/15 at 18:05; Status DC Rivastigmine (Exelon) 1 patch DAILY TD Last administered on 01/28/17 09:41; Start 01/15/17 at 09:00 Atorvastatin Calcium (Lipitor) 40 mg QHS PO Last administered on 01/28/17 19: 37; Start 01/14/17 at 21:00 Magnesium Hydroxide (Milk Of Magnesia) 2,400 mg PRN QHS PRN PO CONSTIPATION; Start 01/14/17 at 15:00 Vitamin D (Vitamin D3) 1,000 unit BIDPCLD PO Last administered on 01/28/17 16: 53; Start 01/14/17 at 17:30 Lorazepam (Ativan) 0.5 mg PRN Q8HRS PRN PO ANXIETY / AGITATION; Start 01/14/17 at 14:45 Divalproex Sodium (Depakote Sprinkles) 500 mg BID PO Last administered on 19:37; Start 01/14/17 at 21:00 Olanzapine (Zyprexa Zydis) 5 mg PRN Q2HR PRN PO ANXIETY / AGITATION Last administered on 01/22/17 08:57; Start 01/14/17 at 15:00 Quetiapine Fumarate (SEROquel) 12.5 mg TID PO Last administered on 01/19/17 12 :59; Start 01/15/17 at 21:00; Stop 01/19/17 at 18:00; Status DC Buspirone HCl (Buspar) 10 mg QID PO Last administered on 01/28/17 19:37; Start 01/16/17 at 17:00 Quetiapine Fumarate (SEROquel) 25 mg TID PO Last administered on 01/22/17 13: 30; Start 01/19/17 at 21:00; Stop 01/22/17 at 18:30; Status DC Quetiapine Fumarate (SEROquel) 37.5 mg TID PO Last administered on 01/25/17 07 :55; Start 01/22/17 at 21:00; Stop 01/25/17 at 10:25; Status DC Quetiapine Fumarate (SEROquel) 50 mg TID PO Last administered on 01/28/17 19: 37; Start 01/25/17 at 14:00 Active Scripts Active Reported Depakote Sprinkle (Divalproex Sodium) 125 Mg Cap.sprink 500 Mg PO BID EXELON 9.5mg/24hr (Rivastigmine) 1 Each Patch.td24 1 Patch TP DAILY Magnesium Oxide 400 Mg Tablet 400 Mg PO BID Ativan (Lorazepam) 0.5 Mg Tablet 0.5 Mg PO HS Duoneb 0.5-3(2.5) Mg/3 Ml (Albuterol/Ipratropium) 3 Ml Ampul.neb 3 Ml NEB PRN QID PRN Aspir-Low (Aspirin) 81 Mg Tablet.dr 1 Tab PO DAILYWBKFT Vitamin D3 (Cholecalciferol (Vitamin D3)) 1,000 Unit Tablet 1,000 Unit PO BIDPCLD Seroquel (Quetiapine Fumarate) 50 Mg Tablet 50 Mg PO QHS Levothyroxine Sodium 88 Mcg Tablet 88 Mcg PO DAILY06 Atorvastatin Calcium 40 Mg Tablet 40 Mg PO QHS Buspirone Hcl 5 Mg Tablet 10 Mg PO BID94 Do NOT administer with grapefruit juice Analgesic [place] (Methyl Salicylate/Menthol) 29 Gm Oint...g. 1 [place] TP PRN BID PRN Milk Of Magnesia (Magnesium Hydroxide) 2,400 Mg/10 Ml Oral.susp 2,400 Mg PO PRN QHS PRN Tylenol (Acetaminophen) 325 Mg Tablet 650 Mg PO PRN Q6HRS PRN Maximum Acetaminophen dose is 4000 mg in 24 hours from all sources for adults. Ativan (Lorazepam) 0.5 Mg Tablet 0.5 Mg PO PRN Q8HRS PRN Escitalopram Oxalate 10 Mg Tablet 10 Mg PO DAILY Clopidogrel (Clopidogrel Bisulfate) 75 Mg Tablet 75 Mg PO DAILY Diagnosis: Problems: (1) Dementia with behavioral disturbance (2) Anxiety disorder (3) Impulse control disorder (4) Dementia, vascular (5) Dementia, vascular, with depression (6) Dementia, vascular, with delusions (7) Dementia in Alzheimer's disease with depression (8) Dementia in Alzheimer's disease with delusions (9) Medical clearance for psychiatric admission ASHA NAJERA MD Jan 28, 2017 20:50
[2017-01-29] MEDS: LEVOTHYROXINE 88 MCG TABLET PO SCH (04:58)
[2017-01-29] MEDS: ESCITALOPRAM 10 MG TABLET. PO SCH (09:52)
[2017-01-29] MEDS: QUEtiapine 50 MG TABLET. PO SCH ×3 (09:52→19:30)
[2017-01-29] MEDS: RIVASTIGMINE 9.5MG PATCH. TD SCH (09:52)
[2017-01-29] MEDS: DIVALPROEX 125 MG CAP.SPRINK PO SCH ×2 (09:52→19:30)
[2017-01-29] MEDS: busPIRone 10 MG TABLET. PO SCH ×4 (09:52→19:30)
[2017-01-29] MEDS: CLOPIDOGREL BISULFATE 75 MG TABLET PO SCH (09:52)
[2017-01-29] MEDS: MAGNESIUM OXIDE 400 MG TABLET PO SCH ×2 (09:52→19:30)
[2017-01-29] MEDS: ASPIRIN ENTERIC COATED 81 MG TABLET.DR. PO SCH (09:52)
[2017-01-29] MEDS: CHOLECALCIFEROL (VITAMIN D3) 1,000 UNIT TABLET PO SCH ×2 (09:53→17:33)
--- NOTE | 2017-01-29 12:48 | PN ---
DATE: 01/28/2017 PSYCHIATRIC PROGRESS NOTE This is late entry of 01/28/2017, covers elements not covered in my initial note. SUBJECTIVE: Per nursing report, the patient remains confused, gets a little anxious at times, but he has not been threatening to staff. REVIEW OF SYSTEMS: No CV, , pulmonary, eye, ENT system symptoms on review. Reliability poor. MENTAL STATUS EXAMINATION: Oriented to himself. Insight, judgment, recent and remote memory, attention, concentration, fund of knowledge poor, consistent with his diagnosis mentioned in my initial note. PLAN: Continue current psychotropics mentioned in my initial note, possible transition to skilled nursing later this week. MAN Shorty NAJERA MD DR: MILKA/abel JOB#: [id number] / [id number]
[2017-01-29 16:24] VITALS: BP 102/67
[2017-01-29 16:26] VITALS: BP 102/49
[2017-01-29] MEDS: ATORVASTATIN CALCIUM 20 MG TABLET PO SCH (19:30)
--- NOTE | 2017-01-29 23:37 | PDOC ---
Exam [place] Demential Exam: [place] Note: Please also refer to the separate dictated note~for this date of service dictated separately.~Patient seen individually. Discussed the patient with Nursing staff reviewed the chart.~Reviewed interim history and current functioning. Reviewed vital signs,~Labs/ Radiology~and current medications noted below. Continue current treatment with the changes noted in the dictated addendum note Assessment: Vital Signs: Vital Signs Date Time Temp Pulse Resp B/P Pulse Ox O2 Delivery O2 Flow Rate FiO2 01/29/17 16:26 97.8 52 17 102/49 99 01/27/17 06:21 Room Air I&O Intake and Output 01/29/17 07:00 Intake Total 840 ml Balance 840 ml Intake Oral 840 ml Current Medications: Meds: Current Medications Lorazepam (Ativan) 1 mg 1X ONCE PO Last administered on 01/14/17 12:00; Start 01/14/17 at 12:00; Stop 01/14/17 at 12:01; Status DC Acetaminophen (Tylenol) 650 mg PRN Q6HRS PRN PO PAIN / TEMP; Start 01/14/17 at 14:45 Aspirin (Aspirin Enteric Coated) 81 mg DAILYWBKFT PO Last administered on 09:52; Start 01/15/17 at 08:00 Buspirone HCl (Buspar) 10 mg BID94 PO Last administered on 01/16/17 15:56; Start 01/14/17 at 16:00; Stop 01/16/17 at 17:14; Status DC Clopidogrel Bisulfate (Plavix) 75 mg DAILY PO Last administered on 01/29/17 09 :52; Start 01/15/17 at 09:00 Escitalopram Oxalate (Lexapro) 10 mg DAILY PO Last administered on 01/29/17 09 :52; Start 01/15/17 at 09:00 Albuterol/ Ipratropium (Duoneb) 3 ml PRN QID PRN NEB SHORTNESS OF AIR; Start at 14:45 Levothyroxine Sodium (Synthroid) 88 mcg DAILY06 PO Last administered on 04:58; Start 01/15/17 at 06:00 Lorazepam (Ativan) 0.5 mg HS PO Last administered on 01/21/17 19:23; Start 01/14/17 at 21:00; Stop 01/23/17 at 06:58; Status DC Magnesium Oxide (Magnesium Oxide) 400 mg BID PO Last administered on 01/29/17 19:30; Start 01/14/17 at 21:00 Multi-Ingredient Ointment (Analgesic [place]) 1 moraima PRN BID PRN TP MUSCLE PAIN; Start 01/14/17 at 14:45 Quetiapine Fumarate (SEROquel) 50 mg QHS PO ; Start 01/14/17 at 21:00; Stop 01/15 at 18:05; Status DC Rivastigmine (Exelon) 1 patch DAILY TD Last administered on 01/29/17 09:52; Start 01/15/17 at 09:00 Atorvastatin Calcium (Lipitor) 40 mg QHS PO Last administered on 01/29/17 19: 30; Start 01/14/17 at 21:00 Magnesium Hydroxide (Milk Of Magnesia) 2,400 mg PRN QHS PRN PO CONSTIPATION; Start 01/14/17 at 15:00 Vitamin D (Vitamin D3) 1,000 unit BIDPCLD PO Last administered on 01/29/17 17: 33; Start 01/14/17 at 17:30 Lorazepam (Ativan) 0.5 mg PRN Q8HRS PRN PO ANXIETY / AGITATION; Start 01/14/17 at 14:45 Divalproex Sodium (Depakote Sprinkles) 500 mg BID PO Last administered on 19:30; Start 01/14/17 at 21:00 Olanzapine (Zyprexa Zydis) 5 mg PRN Q2HR PRN PO ANXIETY / AGITATION Last administered on 01/22/17 08:57; Start 01/14/17 at 15:00 Quetiapine Fumarate (SEROquel) 12.5 mg TID PO Last administered on 01/19/17 12 :59; Start 01/15/17 at 21:00; Stop 01/19/17 at 18:00; Status DC Buspirone HCl (Buspar) 10 mg QID PO Last administered on 01/29/17 19:30; Start 01/16/17 at 17:00 Quetiapine Fumarate (SEROquel) 25 mg TID PO Last administered on 01/22/17 13: 30; Start 01/19/17 at 21:00; Stop 01/22/17 at 18:30; Status DC Quetiapine Fumarate (SEROquel) 37.5 mg TID PO Last administered on 01/25/17 07 :55; Start 01/22/17 at 21:00; Stop 01/25/17 at 10:25; Status DC Quetiapine Fumarate (SEROquel) 50 mg TID PO Last administered on 01/29/17 19: 30; Start 01/25/17 at 14:00 Active Scripts Active Reported Depakote Sprinkle (Divalproex Sodium) 125 Mg Cap.sprink 500 Mg PO BID EXELON 9.5mg/24hr (Rivastigmine) 1 Each Patch.td24 1 Patch TP DAILY Magnesium Oxide 400 Mg Tablet 400 Mg PO BID Ativan (Lorazepam) 0.5 Mg Tablet 0.5 Mg PO HS Duoneb 0.5-3(2.5) Mg/3 Ml (Albuterol/Ipratropium) 3 Ml Ampul.neb 3 Ml NEB PRN QID PRN Aspir-Low (Aspirin) 81 Mg Tablet.dr 1 Tab PO DAILYWBKFT Vitamin D3 (Cholecalciferol (Vitamin D3)) 1,000 Unit Tablet 1,000 Unit PO BIDPCLD Seroquel (Quetiapine Fumarate) 50 Mg Tablet 50 Mg PO QHS Levothyroxine Sodium 88 Mcg Tablet 88 Mcg PO DAILY06 Atorvastatin Calcium 40 Mg Tablet 40 Mg PO QHS Buspirone Hcl 5 Mg Tablet 10 Mg PO BID94 Do NOT administer with grapefruit juice Analgesic [place] (Methyl Salicylate/Menthol) 29 Gm Oint...g. 1 [place] TP PRN BID PRN Milk Of Magnesia (Magnesium Hydroxide) 2,400 Mg/10 Ml Oral.susp 2,400 Mg PO PRN QHS PRN Tylenol (Acetaminophen) 325 Mg Tablet 650 Mg PO PRN Q6HRS PRN Maximum Acetaminophen dose is 4000 mg in 24 hours from all sources for adults. Ativan (Lorazepam) 0.5 Mg Tablet 0.5 Mg PO PRN Q8HRS PRN Escitalopram Oxalate 10 Mg Tablet 10 Mg PO DAILY Clopidogrel (Clopidogrel Bisulfate) 75 Mg Tablet 75 Mg PO DAILY Diagnosis: Problems: (1) Dementia with behavioral disturbance (2) Anxiety disorder (3) Impulse control disorder (4) Dementia, vascular (5) Dementia, vascular, with depression (6) Dementia, vascular, with delusions (7) Dementia in Alzheimer's disease with depression (8) Dementia in Alzheimer's disease with delusions ASHA NAJERA MD Jan 29, 2017 23:37
[2017-01-30] MEDS: LEVOTHYROXINE 88 MCG TABLET PO SCH (05:22)
[2017-01-30 06:04] VITALS: BP 100/59
[2017-01-30] MEDS ORDERED: OLAN5TAB3 PO (07:37)
[2017-01-30] MEDS: MAGNESIUM OXIDE 400 MG TABLET PO SCH (08:34)
[2017-01-30] MEDS: busPIRone 10 MG TABLET. PO SCH (08:34)
[2017-01-30] MEDS: CLOPIDOGREL BISULFATE 75 MG TABLET PO SCH (08:34)
[2017-01-30] MEDS: DIVALPROEX 125 MG CAP.SPRINK PO SCH (08:34)
[2017-01-30] MEDS: QUEtiapine 50 MG TABLET. PO SCH (08:34)
[2017-01-30] MEDS: ESCITALOPRAM 10 MG TABLET. PO SCH (08:34)
[2017-01-30] MEDS: ASPIRIN ENTERIC COATED 81 MG TABLET.DR. PO SCH (08:34)
[2017-01-30] MEDS: RIVASTIGMINE 9.5MG PATCH. TD SCH (08:35)
[2017-01-30] MEDS: CHOLECALCIFEROL (VITAMIN D3) 1,000 UNIT TABLET PO SCH (08:36)
--- NOTE | 2017-01-31 01:54 | PN ---
DATE: 01/29/2017 PSYCHIATRIC PROGRESS NOTE This is a late entry for 01/29/2017, covers elements not covered in my initial note. SUBJECTIVE: Overall, the patient remains confused, has not been aggressive. REVIEW OF SYSTEMS: No CV, , pulmonary, eye system symptoms on review. Reliability poor. MENTAL STATUS EXAM: Oriented to himself. Insight, judgment, recent and remote memory, attention, concentration, fund of knowledge poor, consistent with his diagnosis mentioned in my initial note. PLAN: Continue psychotropics mentioned in my initial note. Transition to [facility] on 01/30/2017. MAN Shorty NAJERA MD DR: MILKA/abel JOB#: [id number] / [id number]
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
== END 2017-01-30 10:57 | DRG 884 ==
LOC: ER 11:05 → GEROPSY 12:40
PROVIDERS: ADMIT Psychiatry & Neurology Psychiatry; ATTEND Psychiatry & Neurology Psychiatry
DX: F01.51 Vascular dementia, unspecified severity, with behavioral disturbance (principal); F02.81 Dementia in other diseases classified elsewhere, unspecified severity, with behavioral disturbance; G31.83 Neurocognitive disorder with Lewy bodies; E03.9 Hypothyroidism, unspecified; E78.00 Pure hypercholesterolemia, unspecified; E78.5 Hyperlipidemia, unspecified; F32.9 Major depressive disorder, single episode, unspecified; F41.9 Anxiety disorder, unspecified; F63.9 Impulse disorder, unspecified; G30.9 Alzheimer's disease, unspecified; I10 Essential (primary) hypertension; F12.10 Cannabis abuse, uncomplicated; I25.10 Atherosclerotic heart disease of native coronary artery without angina pectoris; I73.9 Peripheral vascular disease, unspecified; J44.9 Chronic obstructive pulmonary disease, unspecified; Z65.3 Problems related to other legal circumstances; Z79.899 Other long term (current) drug therapy; Z87.440 Personal history of urinary (tract) infections; Z95.1 Presence of aortocoronary bypass graft; Z95.5 Presence of coronary angioplasty implant and graft; Z91.09 Other allergy status, other than to drugs and biological substances
CPT/HCPCS: 36415; 51701; 80047; 80053; 80164; 81001; 83735; 84075; 84450; 84460; 84484; 85027; 87086; 93005; 94640; 99285-25